=== PATIENT | male | born 1965 | race Caucasian/White ===

== ENCOUNTER → 2016-07-25 | Outpatient (CLI) | payer BC ==
--- NOTE | 2016-07-25 15:36 | XR ---
Cervical spine HISTORY: Pain 5 views of the cervical spine No comparisons There is multilevel spondylosis. Mild loss of cervical lordosis could be due to muscle spasm. Some lo ss of disc height C2-3, C3-4. No significant foraminal encroachment. Cervical vertebral bodies show p reserved height and alignment, bone mineralization. IMPRESSION: Mild degenerative disc disease.
--- NOTE | 2016-07-25 15:37 | XR ---
Thoracic spine HISTORY: Pain 3 views of the thoracic spine There is multilevel hypertrophic spondylosis. Mild loss of disc height at the intervertebral levels o f the lower thoracic spine level is noted. There is a mild spinal curvature. Bone mineralization is m aintained. Thoracic vertebral bodies show preserved height and alignment. No evident paraspinal mass. IMPRESSION: Degenerative disc disease, there may be a mild spinal curvature.
--- NOTE | 2016-07-25 15:40 | XR ---
Lumbosacral spine HISTORY: Radiculopathy comparison previous 08 July 2009, 5 views of the lumbar spine Patient's spinal fusion changes are again noted and are stable L3-S1. There is multilevel laminectomy change, intervertebral spacing material at L3-4. Mild spinal curvature. Spondylosis present at T12-L 1, L1-2, L2-3. There is stable height and alignment, bone mineralization of the lumbar vertebral bodi es. Loss of disc height at L3-4, L4-5 and L5-S1 as progressed slightly. IMPRESSION: Postop changes, degenerative disc disease as described.
== END | disposition home or self-care (01) ==
LOC: RADXRMAIN 13:32
PROVIDERS: ATTEND Family Medicine
DX: M50.31 Other cervical disc degeneration, high cervical region (principal); M51.34 Other intervertebral disc degeneration, thoracic region; M51.36 Other intervertebral disc degeneration, lumbar region; M51.37 Other intervertebral disc degeneration, lumbosacral region
CPT/HCPCS: 72050; 72070; 72110

== ENCOUNTER 2016-12-16 17:51 | Emergency (ER) | payer BC ==
[2016-12-16 18:03] VITALS: BP 132/94; PULSE 110; RESP 18; TEMP 98.1
--- NOTE | 2016-12-16 18:11 | ED ---
General Adult HPI - General Chief complaint: Extremity Injury, Lower Stated complaint: Right knee pain Time Seen by Provider: 12/16/16 18:02 Source: patient, RN notes reviewed Mode of arrival: ambulatory Limitations: no limitations - History of Present Illness Initial comments: Patient is a 51-year-old male who presents emergency room today with a chief complaint of an injury to the right knee that occurred 3 days ago. He does admit that he twisted his right ankle which caused him to twist his right knee. He states that his ankle feels fine at this time but is still expressing pain to the right knee. He states that has been some swelling. States having dental times ambulation and has started using a walker to help. Patient denies any other complaints or symptoms at this time. Patient denies any recent fever, chills, shortness of breath, chest pain, back pain, abdominal pain, nausea or vomiting, numbness or tingling, dysuria or hematuria, constipation or diarrhea, headaches or visual changes, or any other complaints. - Related Data Home Medications Medication Instructions Recorded Confirmed Acetaminophen-Codeine 300-30mg 1 tab PO Q6H PRN 09/01/14 09/01/14 [Tylenol #3] Cyclobenzaprine [Flexeril] 10 mg PO TID 09/01/14 09/01/14 HYDROcodone/APAP 5-325MG [[place] 5] 1 each PO Q6HR PRN 09/01/14 09/01/14 Lisinopril [Prinivil] 20 mg PO DAILY 09/01/14 09/01/14 amLODIPine [Norvasc] 10 mg PO DAILY 09/01/14 09/01/14 Previous Rx's Medication Instructions Recorded HYDROcodone/APAP 5-325MG [[place] 5] 1 each PO Q6HR PRN #30 tab 09/01/14 Naproxen [Naprosyn] 500 mg PO Q12HR #60 tab 09/01/14 Allergies Allergy/AdvReac Type Severity Reaction Status Date / Time Beta-Blockers Allergy Swelling Unverified 07/02/15 08:23 (Beta-Adrenergic Bloc lisinopril Allergy Swelling Unverified 07/02/15 08:23 Review of Systems ROS Statement: Those systems with pertinent positive or pertinent negative responses have been documented in the HPI. ROS Other: All systems not noted in ROS Statement are negative. Past Medical History Past Medical History: Hypertension History of Any Multi-Drug Resistant Organisms: None Reported Past Surgical History: Back Surgery, Bowel Resection, Orthopedic Surgery Past Psychological History: No Psychological Hx Reported Smoking Status: Current every day smoker Past Alcohol Use History: Occasional Past Drug Use History: None Reported General Exam - General Exam Comments Initial Comments: General: The patient is awake and alert, in no distress, and does not appear acutely ill. Neck: The neck is supple, there is no tenderness or JVD. Cardiovascular: There is a regular rate and rhythm. No murmur, rub or gallop is appreciated. Respiratory: Lungs are clear to auscultation, respirations are non-labored, breath sounds are equal. No wheezes, stridor, rales, or rhonchi. Musculoskeletal: Patient does have some moderate swelling to the right knee. Shows limited range of motion with extension and flexion -15 in each direction. Patient sensations are intact pulses equal bilaterally 2+. Mild tenderness to the anterior medial aspect and over the patella. No other bony tenderness. No tenderness of the right ankle or up into the right hip. Neurological: A&O x 3. CN II-XII intact, There are no obvious motor or sensory deficits. Coordination appears grossly intact. Speech is normal. Skin: Skin is warm and dry and no rashes or lesions are noted. Psychiatric: Normal mood and affect. Limitations: no limitations Course Vital Signs 12/16/16 18:00 Temperature 98.1 F Pulse Rate 110 H Respiratory 18 Rate Blood Pressure 132/94 O2 Sat by Pulse 98 Oximetry Medical Decision Making - Medical Decision Making X-ray negative for any acute fracture dislocation. Results were discussed with patient. Patient will be placed in knee immobilizer here in the emergency room and advised follow-up with orthopedics over the next 2 days. Advised to continue to ice elevate the affected area. Advised return to emergency room symptoms increase worsen or for any other concerns. Disposition Clinical Impression: Knee injury, Knee effusion Disposition: HOME SELF-CARE Condition: Good Instructions: Knee Pain (ED) Additional Instructions: Please use knee immobilizer when up and moving around for stability. Please do not sleep with this on. Please continue to ice elevate the affected areas discussed. Please use naproxen for pain. Please follow-up with orthopedics over the next 2 days. Please return to emergency room if any symptoms increase or worsen or for any other concerns. Referrals: Lonnie Valles MD [Primary Care Provider] - 1-2 days Brent Mcfarland MD [STAFF PHYSICIAN] - 1-2 days Time of Disposition: 18:38
--- NOTE | 2016-12-16 18:25 | XR ---
EXAMINATION TYPE: XR knee complete RT DATE OF EXAM: 12/16/2016 COMPARISON: NONE HISTORY: Pain TECHNIQUE: 3 views FINDINGS: I see no fracture nor dislocation. There is a small knee joint effusion. There is spurring on the patella. Joint spaces are fairly normal. IMPRESSION: Small joint effusion. No fracture seen.
== END 2016-12-16 18:48 | disposition home or self-care (01) ==
LOC: EC 17:51
DX: S89.91XA Unspecified injury of right lower leg, initial encounter (principal); M25.461 Effusion, right knee; I10 Essential (primary) hypertension; F17.200 Nicotine dependence, unspecified, uncomplicated; Z79.899 Other long term (current) drug therapy; Z88.8 Allergy status to other drugs, medicaments and biological substances; X50.1XXA Overexertion from prolonged static or awkward postures, initial encounter
CPT/HCPCS: 99283; 73562; L1830 ×2

== ENCOUNTER → 2018-02-22 | Outpatient (CLI) | payer BC ==
[2018-02-22 11:46] LABS: Basophils # (A) 0.1 k/uL (0-0.2); Basophils % (A) 1 %; Eosinophils # (A) 0.3 k/uL (0-0.7); Eosinophils % (A) 3 %; HCT 48.5 % (39.0-53.0); HGB 15.9 gm/dL (13.0-17.5); Lymphocytes # (A) 1.7 k/uL (1.0-4.8); Lymphocytes % (A) 20 %; MCH 31.4 pg (25.0-35.0); MCHC 32.9 g/dL (31.0-37.0); MCV 95.5 fL (80.0-100.0); Mean Platelet Volume 6.8; Monocytes # (A) 0.5 k/uL (0-1.0); Monocytes % (A) 5 %; Neutrophils # (A) 5.6 k/uL (1.3-7.7); Neutrophils % (A) 69 %; Platelet Count 217 k/uL (150-450); RBC 5.08 m/uL (4.30-5.90); RDW 13.3 % (11.5-15.5); WBC 8.2 k/uL (3.8-10.6)
[2018-02-22 20:54] LABS: Albumin 4.6 g/dL (3.80-4.90); Albumin/Globulin Ratio 2.19 (1.20-2.10); Anion Gap 9.7 mmol/L (4.00-12.00); Calcium 9.1 mg/dL (8.7-10.3); Carbon Dioxide 26.3 mmol/L (21.6-31.8); Globulin 2.1 g/dL (2.1-3.7); LDL Cholesterol,Calculated 98.8 mg/dL (0.0-131.0); Potassium 4.2 mmol/L (3.5-5.5); Total Bilirubin 0.7 mg/dL (0.2-1.2); Total Protein 6.7 g/dL (6.2-8.2); VLDL Calculation 21.2 mg/dL (5.00-40.00)
== END | disposition home or self-care (01) ==
LOC: LABWHC1 10:54
PROVIDERS: ATTEND Family Medicine
DX: Z00.00 Encounter for general adult medical examination without abnormal findings (principal); I10 Essential (primary) hypertension
CPT/HCPCS: 36415; 80053; 80061; 84153; 84439; 84443; 85025

== ENCOUNTER 2018-04-08 15:07 | Emergency (ER) | payer BC ==
[2018-04-08] MEDS: SODIUM CHLORIDE 0.9% 500 ML 500 ML IV SCH ×2 (16:08→16:09)
[2018-04-08 16:26] LABS: Basophils # (A) 0.1 k/uL (0-0.2); Basophils % (A) 0 %; Eosinophils # (A) 0.2 k/uL (0-0.7); Eosinophils % (A) 2 %; HCT 48.2 % (39.0-53.0); HGB 16.1 gm/dL (13.0-17.5); Lymphocytes # (A) 1.3 k/uL (1.0-4.8); Lymphocytes % (A) 10 %; MCHC 33.4 g/dL (31.0-37.0); Mean Platelet Volume 6.6; Monocytes # (A) 0.4 k/uL (0-1.0); Monocytes % (A) 3 %; Neutrophils % (A) 84 %; Platelet Count 227 k/uL (150-450); RBC 5.02 m/uL (4.30-5.90); RDW 13.8 % (11.5-15.5); WBC 13.1 k/uL (3.8-10.6)
[2018-04-08 16:35] LABS: Appearance,Urine Clear (Clear); Bilirubin,Urine Negative (Negative); Blood,Urine Trace (Negative); Color,Urine Yellow; Glucose,Urine (UA) Negative (Negative); Ketones,Urine Negative (Negative); Leukocyte Esterase,Urine Negative (Negative); Mucus,Urine Rare /hpf; Nitrite,Urine Negative (Negative); PH, Urine 6.5 (5.0-8.0); Protein,Urine Negative (Negative); RBC,Urine 1 /hpf (0-5); Squamous Epithelial Cell,Urine <1 /hpf (0-4); Urobilinogen,Urine <2.0 mg/dL (<2.0); WBC,Urine 1 /hpf (0-5)
--- NOTE | 2018-04-08 16:48 | XR ---
EXAMINATION TYPE: XR knee complete LT DATE OF EXAM: 04/08/2018 COMPARISON: NONE HISTORY: Left knee pain TECHNIQUE: 3 views FINDINGS: There is knee joint effusion. There is spurring of the patella. I see no fracture nor dislo cation. Joint spaces are fairly normal. IMPRESSION: Knee joint effusion. No fracture seen. No significant joint space narrowing.
[2018-04-08] MEDS ORDERED: KETOROLAC 30 MG/ML 1 ML VIAL IVP STA (17:03)
[2018-04-08 18:01] LABS: ALT 65 U/L (21-72); AST 70 U/L (17-59); Albumin 4.7 g/dL (3.5-5.0); Alkaline Phosphatase 70 U/L (38-126); Anion Gap 12 mmol/L; Blood Urea Nitrogen 9 mg/dL (9-20); C Reactive Protein 12.5 mg/L (<10.0); Calcium 9.7 mg/dL (8.4-10.2); Carbon Dioxide 26 mmol/L (22-30); Chloride 101 mmol/L (98-107); Glucose 132 mg/dL (74-99); Sodium 139 mmol/L (137-145); Total Protein 8.3 g/dL (6.3-8.2); Uric Acid 8.2 mg/dL (3.5-8.5)
[2018-04-08] MEDS ORDERED: cefTRIAXone 2,000 MG in SODIUM CHLORIDE 0.9% 100 ML IVPB STA (18:16)
--- NOTE | 2018-04-08 18:24 | ED ---
General Adult HPI <Agusto Pierson - Last Filed: 04/08/18 21:14> - General Source: patient, RN notes reviewed Mode of arrival: wheelchair Limitations: no limitations <Navneet Mcbride - Last Filed: 04/08/18 21:23> - General Chief complaint: Extremity Injury, Lower Stated complaint: Knee pain Time Seen by Provider: 04/08/18 15:17 - History of Present Illness Initial comments: 52-year-old male presents to the emergency department for a chief complaint of left knee pain. Patient states this has been ongoing for the past 4 days. Patient states he has also had a very swollen left knee, stating it is somewhat less swollen today than yesterday. Patient states he has had this type of pain and swelling before in the left knee but usually it does not last this long. Patient states this has occured "a few times" over the past year or two. He =- stated that he needed to have a knee tapped in the past but is unsure which knee. Patient is unsure how he injured his left knee. He denies fevers or chills at home. Patient does state he has a history of gout but has not had gout in the left knee. Patient has no other complaints at this time including shortness of breath, chest pain, abdominal pain, nausea or vomiting, headache, or visual changes. (Navneet Mcbride) - Related Data Home Medications Medication Instructions Recorded Confirmed Acetaminophen-Codeine 300-30mg 1 tab PO Q6H PRN 09/01/14 09/01/14 [Tylenol #3] Cyclobenzaprine [Flexeril] 10 mg PO TID 09/01/14 09/01/14 HYDROcodone/APAP 5-325MG [[place] 5] 1 each PO Q6HR PRN 09/01/14 09/01/14 Lisinopril [Prinivil] 20 mg PO DAILY 09/01/14 09/01/14 amLODIPine [Norvasc] 10 mg PO DAILY 09/01/14 09/01/14 Previous Rx's Medication Instructions Recorded HYDROcodone/APAP 5-325MG [[place] 5] 1 each PO Q6HR PRN #30 tab 09/01/14 Naproxen [Naprosyn] 500 mg PO Q12HR #60 tab 09/01/14 Allergies Allergy/AdvReac Type Severity Reaction Status Date / Time Beta-Blockers Allergy Swelling Verified 04/08/18 19:56 (Beta-Adrenergic Bloc lisinopril Allergy Swelling Verified 04/08/18 19:56 Review of Systems ROS Other: All systems not noted in ROS Statement are negative. <Agusto Pierson - Last Filed: 04/08/18 21:14> ROS Other: All systems not noted in ROS Statement are negative. <Navneet Mcbride - Last Filed: 04/08/18 21:23> ROS Statement: Those systems with pertinent positive or pertinent negative responses have been documented in the HPI. Past Medical History Past Medical History: Hypertension Additional Past Medical History / Comment(s): gout History of Any Multi-Drug Resistant Organisms: None Reported Past Surgical History: Back Surgery, Bowel Resection, Orthopedic Surgery Past Psychological History: No Psychological Hx Reported Smoking Status: Current every day smoker Past Alcohol Use History: Occasional Past Drug Use History: None Reported <Navneet Mcbride - Last Filed: 04/08/18 21:23> General Exam Limitations: no limitations General appearance: alert, in no apparent distress Head exam: Present: atraumatic, normocephalic, normal inspection Eye exam: Present: normal appearance, PERRL, EOMI. Absent: scleral icterus, conjunctival injection, periorbital swelling ENT exam: Present: normal exam, mucous membranes moist Neck exam: Present: normal inspection, full ROM. Absent: tenderness, meningismus, lymphadenopathy Respiratory exam: Present: normal lung sounds bilaterally. Absent: respiratory distress, wheezes, rales, rhonchi, stridor Cardiovascular Exam: Present: regular rate, normal rhythm, normal heart sounds. Absent: systolic murmur, diastolic murmur, rubs, gallop, clicks Extremities exam: Present: tenderness (Tenderness noted to the anterior and lateral aspects of the left knee, no significant posterior knee tenderness.), normal capillary refill (Capillary refill less than 2 seconds and DP pulse 2+ in the left lower extremity), joint swelling (Patient does have moderate edema noted to the anterior left knee without significant erythema or warmth. ), other (Sensation intact the left lower extremity). Absent: full ROM (Patient has about 60 degrees flexion of the left knee.), calf tenderness (No calf tenderness, negative Homans sign. No erythema, edema, or increased warmth noted of the left calf) Neurological exam: Present: alert, oriented X3, CN II-XII intact Psychiatric exam: Present: normal affect, normal mood <Navneet Mcbride - Last Filed: 04/08/18 21:23> Course <Agusto Pierson - Last Filed: 04/08/18 21:14> <Navneet Mcbride - Last Filed: 04/08/18 21:23> Vital Signs 04/08/18 04/08/18 15:22 18:30 Temperature 100.4 F H 99.8 F H Pulse Rate 106 H 84 Respiratory 18 18 Rate Blood Pressure 165/95 166/87 O2 Sat by Pulse 100 96 Oximetry - Reevaluation(s) Reevaluation #1: 04/08/18 21:14 PA supervision I did do a [id number] evaluation the patient he does demonstrate left knee effusion. Did have a mildly elevated white blood cell count elevated lactic acid some evidence of dehydration he is initially febrile upon admission however he just smokes cigarettes prior to his temperature being taken. Repeat was within normal limits except for one had a mildly elevated temperature. Patient did have a therapeutic done to his knee with multiple cells noted. Patient was given IV antibiotics he was offered admission but does not want to be admitted he is set was try going home with oral medication follow-up with his doctor. (Agusto Pierson) Procedures <Agusto Pierson - Last Filed: 04/08/18 21:14> - Bursa Procedures Consent Obtained: verbal consent Indications: R/O septic bursitis, R/O gouty bursitis, aspiration/injection Side of Body: left XRAY Obtained: other (joint effusion) Local Anesthetic Used: Lidocaine 1% Amount of Anesthesia Used (mls): 1 Fluid Obtained (mls): 85 Fluid Type: clear (straw colored) Patient Tolerated Procedure: well, no complications Complications: none <Navneet Mcbride - Last Filed: 04/08/18 21:23> - Bursa Procedures Additional Comments: performed by myself and BRANDYN Muse (Navneet Mcbride) Medical Decision Making - Lab Data Result diagrams: 04/08/18 16:05 04/08/18 16:05 <Agusto Pierson - Last Filed: 04/08/18 21:14> - Lab Data Result diagrams: 04/08/18 16:05 04/08/18 16:05 <Navneet Mcbride - Last Filed: 04/08/18 21:23> - Medical Decision Making 52-year-old male presents to the emergency department for a chief complaint of left knee pain. This has happened multiple times over the past couple years however is lasting longer. This episode lasted about 5 days. Patient does have a history of gout. On exam patient does have effusion noted of the left knee. CBC shows a mild white count of 13.1. Lactic acid 2.8, patient given IV fluids, likely dehydrated. Initially patient did have a fever of 100.4 however had just smoked a cigarette. I did recheck a temperature which was 98.7 immediately after arrival. CMP is unremarkable. Urine negative. X-ray of the left knee shows a knee joint effusion and spurring of the patella. The knee was therapeutically tapped successfully. White blood cells less than 50,000. However did recommend admission at this time for orthopedic evaluation and possibly IV antibiotics. Patient was given a gram of Rocephin. Patient stating that he cannot stay tonight because he does not have arrangements to take care of his mother. He states he will follow up with the primary care provider tomorrow or return if he has worsening symptoms. He was also given a referral to orthopedics. (Navneet Mcbride) - Lab Data Lab Results 04/08/18 04/08/18 04/08/18 Range/Units 16:05 16:05 16:05 WBC 13.1 H (3.8-10.6) k/uL RBC 5.02 (4.30-5.90) m/uL Hgb 16.1 (13.0-17.5) gm/dL Hct 48.2 (39.0-53.0) % MCV 96.0 (80.0-100.0) fL MCH 32.0 (25.0-35.0) pg MCHC 33.4 (31.0-37.0) g/dL RDW 13.8 (11.5-15.5) % Plt Count 227 (150-450) k/uL Neutrophils % 84 % Lymphocytes % 10 % Monocytes % 3 % Eosinophils % 2 % Basophils % 0 % Neutrophils # 11.0 H (1.3-7.7) k/uL Lymphocytes # 1.3 (1.0-4.8) k/uL Monocytes # 0.4 (0-1.0) k/uL Eosinophils # 0.2 (0-0.7) k/uL Basophils # 0.1 (0-0.2) k/uL Sodium 139 (137-145) mmol/L Potassium 4.0 (3.5-5.1) mmol/L Chloride 101 (98-107) mmol/L Carbon Dioxide 26 (22-30) mmol/L Anion Gap 12 mmol/L BUN 9 (9-20) mg/dL Creatinine 0.70 (0.66-1.25) mg/dL Est GFR (CKD-EPI)AfAm >90 (>60 ml/min/1.73 sqM) Est GFR (CKD-EPI)NonAf >90 (>60 ml/min/1.73 sqM) Glucose 132 H (74-99) mg/dL Lactic Ac Sepsis Rflx Plasma Lactic Acid Juve 2.8 H* (0.7-2.0) mmol/L Uric Acid 8.2 (3.5-8.5) mg/dL Calcium 9.7 (8.4-10.2) mg/dL Total Bilirubin 1.0 (0.2-1.3) mg/dL AST 70 H (17-59) U/L ALT 65 (21-72) U/L Alkaline Phosphatase 70 (38-126) U/L C-Reactive Protein 12.5 H (<10.0) mg/L Total Protein 8.3 H (6.3-8.2) g/dL Albumin 4.7 (3.5-5.0) g/dL Urine Color Urine Appearance (Clear) Urine pH (5.0-8.0) Ur Specific [place] (1.001-1.035) Urine Protein (Negative) Urine Glucose (UA) (Negative) Urine Ketones (Negative) Urine Blood (Negative) Urine Nitrite (Negative) Urine Bilirubin (Negative) Urine Urobilinogen (<2.0) mg/dL Ur Leukocyte Esterase (Negative) Urine RBC (0-5) /hpf Urine WBC (0-5) /hpf Ur Squamous Epith Cells (0-4) /hpf Urine Mucus (None) /hpf Fluid Source Fluid Color Fluid Appearance Fluid RBC /uL Fluid Nucleated Cells /uL Fluid Polynuclear WBCs % Fluid Mononuclear WBCs % 04/08/18 04/08/18 04/08/18 Range/Units 16:05 17:30 18:04 WBC (3.8-10.6) k/uL RBC (4.30-5.90) m/uL Hgb (13.0-17.5) gm/dL Hct (39.0-53.0) % MCV (80.0-100.0) fL MCH (25.0-35.0) pg MCHC (31.0-37.0) g/dL RDW (11.5-15.5) % Plt Count (150-450) k/uL Neutrophils % % Lymphocytes % % Monocytes % % Eosinophils % % Basophils % % Neutrophils # (1.3-7.7) k/uL Lymphocytes # (1.0-4.8) k/uL Monocytes # (0-1.0) k/uL Eosinophils # (0-0.7) k/uL Basophils # (0-0.2) k/uL Sodium (137-145) mmol/L Potassium (3.5-5.1) mmol/L Chloride (98-107) mmol/L Carbon Dioxide (22-30) mmol/L Anion Gap mmol/L BUN (9-20) mg/dL Creatinine (0.66-1.25) mg/dL Est GFR (CKD-EPI)AfAm (>60 ml/min/1.73 sqM) Est GFR (CKD-EPI)NonAf (>60 ml/min/1.73 sqM) Glucose (74-99) mg/dL Lactic Ac Sepsis Rflx Y Plasma Lactic Acid Juve (0.7-2.0) mmol/L Uric Acid (3.5-8.5) mg/dL Calcium (8.4-10.2) mg/dL Total Bilirubin (0.2-1.3) mg/dL AST (17-59) U/L ALT (21-72) U/L Alkaline Phosphatase (38-126) U/L C-Reactive Protein (<10.0) mg/L Total Protein (6.3-8.2) g/dL Albumin (3.5-5.0) g/dL Urine Color Yellow Urine Appearance Clear (Clear) Urine pH 6.5 (5.0-8.0) Ur Specific [place] 1.010 (1.001-1.035) Urine Protein Negative (Negative) Urine Glucose (UA) Negative (Negative) Urine Ketones Negative (Negative) Urine Blood Trace H (Negative) Urine Nitrite Negative (Negative) Urine Bilirubin Negative (Negative) Urine Urobilinogen <2.0 (<2.0) mg/dL Ur Leukocyte Esterase Negative (Negative) Urine RBC 1 (0-5) /hpf Urine WBC 1 (0-5) /hpf Ur Squamous Epith Cells <1 (0-4) /hpf Urine Mucus Rare H (None) /hpf Fluid Source Synovial Fluid Color Yellow Fluid Appearance Cloudy Fluid RBC 2350 /uL Fluid Nucleated Cells 59842 /uL Fluid Polynuclear WBCs 87 % Fluid Mononuclear WBCs 13 % Disposition <Agusto Pierson - Last Filed: 04/08/18 21:14> Is patient prescribed a controlled substance at d/c from ED?: No Time of Disposition: 21:16 <Navneet Mcbride - Last Filed: 04/08/18 21:23> Clinical Impression: Knee pain, left, Knee effusion, left Disposition: HOME SELF-CARE Condition: Good Instructions: Knee Pain (ED) Additional Instructions: Take Motrin and Tylenol for pain. Rest ice and elevate the left knee. Use Raz wrap as needed. Please follow up with primary care and orthopedics in one to 2 days. Please return to the emergency department if you have any worsening symptoms. Referrals: Lonnie Valles MD [Primary Care Provider] - 1-2 days Jason Velasquez MD [STAFF PHYSICIAN] - 1-2 days
[2018-04-08 19:49] LABS: Color,BF Yellow
[2018-04-08 19:50] LABS: Appearance,BF Cloudy; Mononuclear WBC,Body Fluid 13 %; Nucleated Cells, Body Fluid 19300 /uL; Polynuclear WBC,Body Fluid 87 %; RBC, Body Fluid 2350 /uL
[2018-04-08 21:25] VITALS: BP 179/95; PULSE 85; RESP 20; TEMP 100.5
== END 2018-04-08 21:25 | disposition home or self-care (01) ==
LOC: EC 15:07
DX: M25.462 Effusion, left knee (principal); I10 Essential (primary) hypertension; F17.210 Nicotine dependence, cigarettes, uncomplicated; Z87.39 Personal history of other diseases of the musculoskeletal system and connective tissue; Z98.890 Other specified postprocedural states; Z79.899 Other long term (current) drug therapy; Z88.8 Allergy status to other drugs, medicaments and biological substances
CPT/HCPCS: 36415; 89060; 80053; 89050; 83605; 84550; 85025; 86140; 81001; 87040; 87070; 87205; 82945; 83615; 73562; 99283; 20610; 96365; 96375; J0696; J1885

== ENCOUNTER 2018-04-09 15:36 | Inpatient (IN) | payer BC ==
[2018-04-09] MEDS ORDERED: VANCOMYCIN IV PER PHARMACY 1 EACH MISC MISCELLANE PRN (16:53)
[2018-04-09] MEDS ORDERED: cefTRIAXone 2,000 MG in SODIUM CHLORIDE 0.9% 100 ML IVPB STA (16:56)
[2018-04-09] MEDS ORDERED: VANCOMYCIN 2,500 MG in SODIUM CHLORIDE 0.9% 500 ML 500 ML IVPB STA (17:00)
[2018-04-09] MEDS ORDERED: NALOXONE 0.4 MG/ML 1 ML VIAL IV PRN (17:00)
[2018-04-09] MEDS ORDERED: HYDROmorphone 0.5 MG/0.5 ML SYRINGE IVP PRN (17:00)
--- NOTE | 2018-04-09 17:00 | ED ---
General Adult HPI - General Chief complaint: Extremity Problem,Nontraumatic Stated complaint: knee pain/poss sepsis Time Seen by Provider: 04/09/18 16:37 Source: patient, RN notes reviewed Mode of arrival: wheelchair Limitations: no limitations - History of Present Illness Initial comments: Patient is a pleasant 52-year-old male presenting to the emergency Department with complaints of left knee pain. Onset of symptoms was several days ago. Patient was in the emergency department yesterday. There was concern for possible septic arthritis. Patient did receive a dose of antibiotics however was unable to stand the hospital and left AGAINST MEDICAL ADVICE. Patient did follow-up with practitioner today and advised him to come back to the hospital. Patient states he is now able to stay at this time. Patient did have fever yesterday. Patient has had chills and myalgias today. Mild cough. Discomfort is localized to the anterior knee. No calf pain or thigh pain. Knee was warm yesterday. Patient states there is mild erythema yesterday. Pain increases with movement - Related Data Home Medications Medication Instructions Recorded Confirmed Acetaminophen-Codeine 300-30mg 1 tab PO Q6H PRN 09/01/14 04/09/18 [Tylenol #3] Cyclobenzaprine [Flexeril] 10 mg PO TID PRN 09/01/14 04/09/18 amLODIPine [Norvasc] 10 mg PO DAILY 09/01/14 04/09/18 Hydrochlorothiazide [Hydrodiuril] 12.5 mg PO DAILY 04/09/18 04/09/18 buPROPion XL [Wellbutrin Xl] 150 mg PO DAILY 04/09/18 04/09/18 Allergies Allergy/AdvReac Type Severity Reaction Status Date / Time Beta-Blockers Allergy Swelling Verified 04/09/18 17:04 (Beta-Adrenergic Bloc lisinopril Allergy Swelling Verified 04/09/18 17:04 olmesartan Allergy Swelling Verified 04/09/18 17:04 Review of Systems ROS Statement: Those systems with pertinent positive or pertinent negative responses have been documented in the HPI. ROS Other: All systems not noted in ROS Statement are negative. Constitutional: Reports: fever. Denies: chills Eyes: Denies: eye pain ENT: Denies: ear pain Respiratory: Reports: cough Cardiovascular: Denies: chest pain Endocrine: Denies: fatigue Gastrointestinal: Denies: abdominal pain Genitourinary: Denies: dysuria Musculoskeletal: Reports: joint swelling, arthralgia Neurological: Denies: weakness Past Medical History Past Medical History: Hypertension Additional Past Medical History / Comment(s): gout History of Any Multi-Drug Resistant Organisms: None Reported Past Surgical History: Back Surgery, Bowel Resection, Orthopedic Surgery Past Psychological History: No Psychological Hx Reported Smoking Status: Current every day smoker Past Alcohol Use History: Occasional Past Drug Use History: None Reported General Exam Limitations: no limitations General appearance: alert, in no apparent distress Head exam: Present: atraumatic Eye exam: Present: normal appearance, PERRL ENT exam: Present: normal oropharynx Neck exam: Present: normal inspection Respiratory exam: Present: normal lung sounds bilaterally Cardiovascular Exam: Present: regular rate, normal rhythm Expanded Peripheral pulses: 2+: Posterior Tibialis (L), Dorsalis Pedis (L) GI/Abdominal exam: Present: soft. Absent: tenderness Extremities exam: Present: joint swelling (Left knee with anterior fusion and tenderness. Pain with range of motion. No significant erythema. Minimal warmth.), other (Distally the extremity is neurovascular intact). Absent: pedal edema, calf tenderness Neurological exam: Present: alert. Absent: motor sensory deficit Psychiatric exam: Present: normal mood Skin exam: Absent: rash Course Vital Signs 04/09/18 04/09/18 15:39 18:10 Temperature 98.2 F 98.2 F Pulse Rate 98 96 Respiratory 18 18 Rate Blood Pressure 165/110 168/90 O2 Sat by Pulse 99 98 Oximetry - Reevaluation(s) Reevaluation #1: 04/09/18 18:39 Chest x-ray shows by basilar opacities with possible bronchopneumonia. Rocephin has been started however is azithromycin will be added. 04/09/18 18:40 Patient does not meet sepsis criteria. EKG Findings - EKG Comments: EKG Findings:: Normal sinus rhythm at 80. ND 134. QRS 90. QT 368. QTC 424. Normal axis. Normal QRS. No acute ST change. Medical Decision Making - Medical Decision Making Patient presents with either inflammatory arthralgia or septic arthritis. Septic arthritis cannot be ruled out at this point. Case was discussed in detail with Dr. Valles who is in agreement and will admit his patient with orthopedic consult. IV antibiotics will be started. - Lab Data Result diagrams: 04/09/18 17:35 04/09/18 17:35 - Radiology Data Radiology results: image reviewed (X-ray of left knee shows no acute process. Chest x-ray shows right basilar opacities which could represent bronchopneumonia.) Disposition Clinical Impression: Knee pain, left, Bronchopneumonia Disposition: ADMITTED IP TO THIS HOSP Condition: Serious Is patient prescribed a controlled substance at d/c from ED?: No Decision Time: 16:59
--- NOTE | 2018-04-09 17:22 | XR ---
PROCEDURE: XR knee complete LT - 3V DATE AND TIME: 04/09/2018 5:10 PM CLINICAL INDICATION: PHH; Pain TECHNIQUE: Department protocol COMPARISON: 04/08/2018 FINDINGS: Bones and joints are unremarkable. Minimal joint effusion is seen in the suprapatellar bursa. Periarticular soft tissue tissues are unremarkable. IMPRESSION: Negative for fracture or malalignment.
[2018-04-09] MEDS: SODIUM CHLORIDE 0.9% 500 ML 500 ML IV SCH ×2 (17:51→20:57)
[2018-04-09] MEDS: SODIUM CHLORIDE 0.9% 1,000 ML IV SCH (17:52)
[2018-04-09 17:56] LABS: Basophils # (A) 0.1 k/uL (0-0.2); Basophils % (A) 1 %; Eosinophils # (A) 0.3 k/uL (0-0.7); Eosinophils % (A) 2 %; HCT 45.7 % (39.0-53.0); HGB 15.3 gm/dL (13.0-17.5); Lymphocytes # (A) 1.8 k/uL (1.0-4.8); Lymphocytes % (A) 14 %; MCH 31.8 pg (25.0-35.0); MCHC 33.4 g/dL (31.0-37.0); MCV 95.1 fL (80.0-100.0); Mean Platelet Volume 6.7; Monocytes # (A) 0.6 k/uL (0-1.0); Monocytes % (A) 5 %; Neutrophils # (A) 9.7 k/uL (1.3-7.7); Neutrophils % (A) 77 %; Platelet Count 236 k/uL (150-450); RBC 4.81 m/uL (4.30-5.90); RDW 13.5 % (11.5-15.5); WBC 12.5 k/uL (3.8-10.6)
[2018-04-09 18:10] LABS: Partial Thromboplastin Time 24.7 sec (22.0-30.0); Prothrombin Time 10.7 sec (9.0-12.0)
[2018-04-09 18:23] LABS: ALT 64 U/L (21-72); AST 65 U/L (17-59); Albumin 4.7 g/dL (3.5-5.0); Alkaline Phosphatase 80 U/L (38-126); Anion Gap 12 mmol/L; Blood Urea Nitrogen 10 mg/dL (9-20); C Reactive Protein 21.5 mg/L (<10.0); Calcium 9.8 mg/dL (8.4-10.2); Carbon Dioxide 25 mmol/L (22-30); Chloride 104 mmol/L (98-107); Glucose 102 mg/dL (74-99); Potassium 4.4 mmol/L (3.5-5.1); Sodium 141 mmol/L (137-145); Total Bilirubin 0.9 mg/dL (0.2-1.3); Total Protein 8.6 g/dL (6.3-8.2)
--- NOTE | 2018-04-09 18:28 | XR ---
EXAMINATION: XR chest 3V DATE AND TIME: 04/09/2018 5:44 PM CLINICAL INDICATION: PHH; fever TECHNIQUE: 2 frontal and one lateral view COMPARISON: None FINDINGS: There is a rounded area of ill-defined added opacity in the left lower lung zone. Similar o pacity is noted on the right, but more subtle. These findings could represent summation shadows from breast parenchyma, left greater than the right. However, they should be considered pulmonary until pr oven otherwise. The lungs are otherwise negative. The pleural spaces are negative. The cardiac silhouette is not enlarged. The skeletal structures and soft tissues are negative for acute findings. IMPRESSION: Bibasilar ill-defined opacities, greater on the left, which can correlate with a clinical diagnosis o f bronchopneumonia. Six-week follow-up PA and lateral chest radiographs advised in order to prove res olution.
[2018-04-09 18:51] LABS: Erythrocyte Sedimentation Rate 20 mm/hr (0-15)
[2018-04-09 20:19] VITALS: BMI 38.7
[2018-04-09] MEDS: HYDROmorphone 1 MG/ML 1 ML SYRINGE IVP PRN (20:50)
[2018-04-09] MEDS: amLODIPine 10 MG TAB PO SCH (22:17)
[2018-04-09] MEDS: AZITHROMYCIN 500 MG in SODIUM CHLORIDE 0.9% 250 ML IVPB SCH (23:21)
[2018-04-10] MEDS: HYDROmorphone 1 MG/ML 1 ML SYRINGE IVP PRN ×2 (00:38→07:37)
[2018-04-10] MEDS: VANCOMYCIN 2,000 MG in SODIUM CHLORIDE 0.9% 500 ML 500 ML IVPB SCH ×3 (05:36→21:54)
--- NOTE | 2018-04-10 07:40 | P.CNOR ---
History of Present Illness - [facility] Consult date: 04/10/18 Consult reason: joint pain (Left knee pain/swelling) History of present illness: The patient's a 52-year-old male who presents with progressive left knee pain that started about a week ago. He had a gouty flare in his left foot, and once that started to resolve his left knee became quite swollen and painful. This progressed over the weekend and he went to the emergency room last Sunday. He had it drained and got initial relief. Subsequently his pain has recurred along with swelling and subjective fevers. He is having a difficult time with any weightbearing. Review of Systems Constitutional: Reports fever Musculoskeletal: left: knee pain, knee swelling Past Medical History Past Medical History: Eye Disorder, GERD/Reflux, Hypertension, Liver Disease, Musculoskeletal Disorder, Neurologic Disorder, Osteoarthritis (OA), Skin Disorder, Sleep Apnea/CPAP/BIPAP Additional Past Medical History / Comment(s): gout, lower extremity numbness, excema History of Any Multi-Drug Resistant Organisms: None Reported Past Surgical History: Back Surgery, Bowel Resection, Orthopedic Surgery Additional Past Surgical History / Comment(s): 4 surgeries to lower back, back fusion, 4 left elbow surgeries, bowel perforation, 18" of bowel removed Past Anesthesia/Blood Transfusion Reactions: No Reported Reaction Past Psychological History: Depression Smoking Status: Current every day smoker Past Alcohol Use History: Occasional Past Drug Use History: None Reported - Past Family History Mother Family Medical History: Hypertension Father Family Medical History: Diabetes Mellitus, Hypertension Medications and Allergies Home Medications Medication Instructions Recorded Confirmed Type Acetaminophen-Codeine 300-30mg 1 tab PO Q6H PRN 09/01/14 04/09/18 History [Tylenol #3] Cyclobenzaprine [Flexeril] 10 mg PO TID PRN 09/01/14 04/09/18 History amLODIPine [Norvasc] 10 mg PO DAILY 09/01/14 04/09/18 History Hydrochlorothiazide [Hydrodiuril] 12.5 mg PO DAILY 04/09/18 04/09/18 History buPROPion XL [Wellbutrin Xl] 150 mg PO DAILY 04/09/18 04/09/18 History Allergies Allergy/AdvReac Type Severity Reaction Status Date / Time Beta-Blockers Allergy Swelling Verified 04/09/18 17:04 (Beta-Adrenergic Bloc lisinopril Allergy Swelling Verified 04/09/18 17:04 olmesartan Allergy Swelling Verified 04/09/18 17:04 Physical Examination - Knee left Appearance: effusion Effusion grade: grade 3 (Moderate warmth left knee with diffuse joint line tenderness) Tenderness with palpation: medial, lateral Pain: throughout ROM Gait: limping ROM: extension: -25 degrees ROM: flexion: 80 degrees Strength: extension: 5/5 Strength: flexion: 5/5 Results - Labs Labs: Abnormal Lab Results - Last 24 Hours (Table) 04/09/18 04/09/18 Range/Units 17:35 17:35 WBC 12.5 H (3.8-10.6) k/uL Neutrophils # 9.7 H (1.3-7.7) k/uL ESR 20 H (0-15) mm/hr Glucose 102 H (74-99) mg/dL AST 65 H (17-59) U/L C-Reactive Protein 21.5 H (<10.0) mg/L Total Protein 8.6 H (6.3-8.2) g/dL H & H 04/09/18 Range/Units 17:35 Hgb 15.3 (13.0-17.5) gm/dL Hct 45.7 (39.0-53.0) % Coagulation 04/09/18 Range/Units 17:35 INR 1.0 (<1.2) Result Diagrams: 04/09/18 17:35 04/09/18 17:35 - Diagnostic results Knee x-ray: report reviewed Assessment and Plan Assessment: Left knee effusion/synovitispossibly gouty versus infectious (1) Knee effusion, left Narrative/Plan: I talked with patient regarding his condition along with treatment options. His previous aspiration showed 19,300 white blood cells with no definite crystals. We will plan to proceed with arthroscopic irrigation and debridement of the left knee with probable synovectomy. We will obtain deep cultures along with fluid for crystal analysis. We will also await infectious disease input. Current Visit: No Status: Acute Code(s): M25.462 - EFFUSION, LEFT KNEE SNOMED Code(s): 032963895 Plan: Operating room today for arthroscopic debridement.
[2018-04-10] MEDS: cefTRIAXone 2,000 MG in SODIUM CHLORIDE 0.9% 100 ML IVPB SCH (09:45)
[2018-04-10] MEDS: amLODIPine 10 MG TAB PO SCH (09:45)
[2018-04-10] MEDS: HYDROCHLOROTHIAZIDE 12.5 MG CAP PO SCH (09:45)
[2018-04-10] MEDS: buPROPion XL 150 MG TAB.ER.24H PO SCH (09:45)
--- NOTE | 2018-04-10 11:08 | P.CONS ---
History of Present Illness - Reason for Consult Consult date: 04/10/18 Possible septic knee - History of Present Illness This is a 52-year-old male gives history of frequent gout episodes and the bilateral great toes or ankles. He states that he had an episode last Sunday in the left ankle and this seemed to subsided but by his left knee started feeling sore. On Sunday was very stiff and it continued to worsen over the weekend with increased edema and by Sunday he was just miserable. He states he has had episodes of sharp pain in his left knee for which he occasionally wears knee brace. He has not had any previous surgeries in the left knee but has had a possible aspiration with past. He came into [facility] emergency center on April 08. Knee x-ray showed an effusion, no acute fracture, no significant joint space narrowing and he was diagnosed with knee effusion. Patient underwent aspiration which was yellow, cloudy, RBCs 2350, nucleated cells 19,300, probably nuclear 87, mononuclear 13, glucose 114, LDH 192, crystals none. He was given 1 dose of Rocephin and recommended Motrin and Tylenol for pain and ice and elevation and Raz wrap, outpatient follow-up. Patient was offered admission but declined because he needed to make arrangements for someone to care for his mother. Patient had appointment at his PCP and by the time he arrived there he was feeling short of breath, lightheaded, hot and in general not feeling well. He was sent directly into the emergency center to be evaluated. Temperature max was 100.5, white count 13.1, creatinine 0.71, initial lactic acid 2.8 and repeat 0.7, CRP 21.5 and sed rate 20. Blood culture is showing no growth at 24 hours and fluid culture is in progress. Repeat x-ray of the knee showed negative for fracture or malalignment. Chest x-ray showed bibasilar ill-defined opacities greater on the left, correlate with clinical diagnosis of bronchopneumonia. Six-week follow-up recommended. Symptoms of shortness of breath, lightheadedness and feeling hot have resolved. Review of Systems All systems: negative Constitutional: Reports weakness, Denies anorexia, Denies chills, Denies fever, Denies poor appetite, Denies weight loss Eyes: denies blurred vision, denies pain Ears, nose, mouth and throat: Denies dental pain, Denies dysphagia, Denies headache, Denies hoarseness, Denies mouth pain, Denies sore throat, Denies vertigo Cardiovascular: Reports leg edema, Reports lightheadedness, Reports shortness of breath, Denies chest pain, Denies decreased exercise tolerance, Denies dyspnea on exertion, Denies edema, Denies palpitations, Denies syncope Respiratory: Reports cough (chronic), Reports dyspnea, Denies excessive sputum, Denies hemoptysis, Denies home oxygen, Denies wheezing Gastrointestinal: Denies abdominal pain, Denies bloating, Denies diarrhea, Denies loss of appetite, Denies nausea, Denies vomiting Genitourinary: Denies dysuria Musculoskeletal: Reports gait dysfunction, Denies frequent falls, Denies muscle weakness, Denies myalgias Integumentary: Reports color changes, Reports darkening of skin, Denies pruritus , Denies rash, Denies wounds Neurological: Denies aphasia, Denies change in speech, Denies headaches, Denies numbness, Denies seizures, Denies weakness Psychiatric: Denies anxiety, Denies depression Endocrine: Denies fatigue, Denies weight change Past Medical History Past Medical History: Eye Disorder, GERD/Reflux, Hypertension, Liver Disease, Musculoskeletal Disorder, Neurologic Disorder, Osteoarthritis (OA), Skin Disorder, Sleep Apnea/CPAP/BIPAP Additional Past Medical History / Comment(s): gout, lower extremity numbness, eczema, obstructive sleep apnea on CPAP History of Any Multi-Drug Resistant Organisms: None Reported Past Surgical History: Back Surgery, Bowel Resection, Orthopedic Surgery Additional Past Surgical History / Comment(s): 4 surgeries to lower back, back fusion, 4 left elbow surgeries, bowel perforation, 18" of bowel removed Past Anesthesia/Blood Transfusion Reactions: No Reported Reaction Past Psychological History: Depression Smoking Status: Current every day smoker Past Alcohol Use History: Occasional Additional Past Alcohol Use History / Comment(s): The patient has been a smoker one to one and a half to 2 packs a day for 27 years. He is currently cutting back over the past 2 weeks and plans to quit completely. He also has alcohol abuse problems drinking more than a sixpack of beer per day but has cut back over the past 3 weeks. His last alcohol intake was a week ago Sunday. The patient is on disability secondary to 4 back surgeries. 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 Past Drug Use History: None Reported - Past Family History Mother Family Medical History: Hypertension Father Family Medical History: Diabetes Mellitus, Hypertension Medications and Allergies Home Medications Medication Instructions Recorded Confirmed Type Acetaminophen-Codeine 300-30mg 1 tab PO Q6H PRN 09/01/14 04/09/18 History [Tylenol #3] Cyclobenzaprine [Flexeril] 10 mg PO TID PRN 09/01/14 04/09/18 History amLODIPine [Norvasc] 10 mg PO DAILY 09/01/14 04/09/18 History Hydrochlorothiazide [Hydrodiuril] 12.5 mg PO DAILY 04/09/18 04/09/18 History buPROPion XL [Wellbutrin Xl] 150 mg PO DAILY 04/09/18 04/09/18 History Allergies Allergy/AdvReac Type Severity Reaction Status Date / Time Beta-Blockers Allergy Swelling Verified 04/09/18 17:04 (Beta-Adrenergic Bloc lisinopril Allergy Swelling Verified 04/09/18 17:04 olmesartan Allergy Swelling Verified 04/09/18 17:04 Physical Exam Vitals: Vital Signs Temp Pulse Pulse Resp BP BP Pulse Ox 04/10/18 07:27 98.3 F 83 18 168/98 96 04/10/18 00:05 98.7 F 85 17 126/76 94 L 04/09/18 22:07 98.6 F 90 16 144/94 96 04/09/18 20:44 98.4 F 87 16 172/110 95 04/09/18 18:10 98.2 F 96 18 168/90 98 04/09/18 15:39 98.2 F 98 18 165/110 99 Intake and Output 04/09/18 04/10/18 04/10/18 22:59 06:59 14:59 Intake Total 750 Balance 750 Intake: Intake, IV Titration 750 Amount Azithromycin 500 mg In 250 Sodium Chloride 0.9% 250 ml @ 250 mls/hr IVPB DAILY@2000 [facility] Rx#: [id number] Vancomycin 2,000 mg In 500 Sodium Chloride 0.9% 500 ml 500 ml @ 167 mls/hr IVPB Q8H [facility] Rx#: [id number] Other: # Voids 1 Weight 138.4 kg Gen: This is a morbidly obese 52-year-old male. He is in bed and appears to be comfortable. No acute distress noted. HEENT: Head is atraumatic, normocephalic. Pupils equal, round. Sclerae is anicteric. Conjunctiva pink. Mucous memories of the mouth are moist. No thrush noted. Oral pharynx shows no redness or erythema. NECK: Supple. No JVD. No lymphadenopathy. No thyromegaly. LUNGS: Clear to auscultation. No wheezes or rhonchi. No intercostal retractions. HEART: Regular rate and rhythm. No murmur. ABDOMEN: Soft. Bowel sounds are present. No masses. No tenderness. EXTREMITIES: No pedal edema. No calf tenderness. Dorsalis pedis +2 bilaterally. Patient has pain and warmth to the left knee with decreased range of motion. No open wounds, drainage. NEUROLOGICAL: Patient is awake, alert and oriented x3. Cranial nerves 2 through 12 are grossly intact. Results Results: Laboratory Results WBC 12.5 k/uL (3.8-10.6) H 04/09/18 17:35 RBC 4.81 m/uL (4.30-5.90) 04/09/18 17:35 Hgb 15.3 gm/dL (13.0-17.5) 04/09/18 17:35 Hct 45.7 % (39.0-53.0) 04/09/18 17:35 MCV 95.1 fL (80.0-100.0) 04/09/18 17:35 MCH 31.8 pg (25.0-35.0) 04/09/18 17:35 MCHC 33.4 g/dL (31.0-37.0) 04/09/18 17:35 RDW 13.5 % (11.5-15.5) 04/09/18 17:35 Plt Count 236 k/uL (150-450) 04/09/18 17:35 Neutrophils % 77 % 04/09/18 17:35 Lymphocytes % 14 % 04/09/18 17:35 Monocytes % 5 % 04/09/18 17:35 Eosinophils % 2 % 04/09/18 17:35 Basophils % 1 % 04/09/18 17:35 Neutrophils # 9.7 k/uL (1.3-7.7) H 04/09/18 17:35 Lymphocytes # 1.8 k/uL (1.0-4.8) 04/09/18 17:35 Monocytes # 0.6 k/uL (0-1.0) 04/09/18 17:35 Eosinophils # 0.3 k/uL (0-0.7) 04/09/18 17:35 Basophils # 0.1 k/uL (0-0.2) 04/09/18 17:35 ESR 20 mm/hr (0-15) H 04/09/18 17:35 PT 10.7 sec (9.0-12.0) 04/09/18 17:35 INR 1.0 (<1.2) 04/09/18 17:35 APTT 24.7 sec (22.0-30.0) 04/09/18 17:35 Sodium 141 mmol/L (137-145) 04/09/18 17:35 Potassium 4.4 mmol/L (3.5-5.1) 04/09/18 17:35 Chloride 104 mmol/L (98-107) 04/09/18 17:35 Carbon Dioxide 25 mmol/L (22-30) 04/09/18 17:35 Anion Gap 12 mmol/L 04/09/18 17:35 BUN 10 mg/dL (9-20) 04/09/18 17:35 Creatinine 0.66 mg/dL (0.66-1.25) 04/09/18 17:35 Est GFR (CKD-EPI)AfAm >90 (>60 ml/min/1.73 sqM) 04/09/18 17:35 Est GFR (CKD-EPI)NonAf >90 (>60 ml/min/1.73 sqM) 04/09/18 17:35 Glucose 102 mg/dL (74-99) H 04/09/18 17:35 Plasma Lactic Acid Juve 0.9 mmol/L (0.7-2.0) 04/09/18 17:35 Uric Acid 7.7 mg/dL (3.5-8.5) 04/09/18 17:35 Calcium 9.8 mg/dL (8.4-10.2) 04/09/18 17:35 Total Bilirubin 0.9 mg/dL (0.2-1.3) 04/09/18 17:35 AST 65 U/L (17-59) H 04/09/18 17:35 ALT 64 U/L (21-72) 04/09/18 17:35 Alkaline Phosphatase 80 U/L (38-126) 04/09/18 17:35 C-Reactive Protein 21.5 mg/L (<10.0) H 04/09/18 17:35 Total Protein 8.6 g/dL (6.3-8.2) H 04/09/18 17:35 Albumin 4.7 g/dL (3.5-5.0) 04/09/18 17:35 CBC & Chem 7: 04/09/18 17:35 04/09/18 17:35 Labs: Abnormal Lab Results - Last 24 Hours (Table) 04/09/18 04/09/18 Range/Units 17:35 17:35 WBC 12.5 H (3.8-10.6) k/uL Neutrophils # 9.7 H (1.3-7.7) k/uL ESR 20 H (0-15) mm/hr Glucose 102 H (74-99) mg/dL AST 65 H (17-59) U/L C-Reactive Protein 21.5 H (<10.0) mg/L Total Protein 8.6 H (6.3-8.2) g/dL Assessment and Plan Plan: This is a 52-year-old male who presents to hospital with left knee pain with history of gout. He is scheduled arthroscopic debridement this afternoon. He did present with lactic acidosis which has resolved. Patient is currently on azithromycin, Rocephin and vancomycin. There was concern of bronchopneumonia on chest x-ray. Fluid culture is in progress and blood culture showing no growth at 24 hours. Continue supportive care. Further recommendations as patient presses. The above dictated assessment and findings were discussed with Dr. Larose. The impression and plan of care have been directed as dictated. Shyla Queen nurse practitioner acting as scribe for Dr. Lraose.
--- NOTE | 2018-04-10 14:01 | P.HPIM ---
History of Present Illness H&P Date: 04/10/18 Chief Complaint: Left knee pain Pj, is a 52 y/o WM with known h/o gout. He c/o of left ankle pain approx 6 days ago consistant with his gout. 5 days ago the pain was in his left knee and resolved in the ankle. THe Knee sx worsened and became sever. He was seen in the office and directed to ER 2 days ago where he underwent drainage. He returned after having worse pain. He denies any Chest pain, poressure, SOB, nausea or vomiting with this. Nothing he has taken at home helped much with his sx. Review of Systems All systems: negative Past Medical History Past Medical History: Eye Disorder, GERD/Reflux, Hypertension, Liver Disease, Musculoskeletal Disorder, Neurologic Disorder, Osteoarthritis (OA), Skin Disorder, Sleep Apnea/CPAP/BIPAP Additional Past Medical History / Comment(s): gout, lower extremity numbness, eczema, obstructive sleep apnea on CPAP History of Any Multi-Drug Resistant Organisms: None Reported Past Surgical History: Back Surgery, Bowel Resection, Orthopedic Surgery Additional Past Surgical History / Comment(s): 4 surgeries to lower back, back fusion, 4 left elbow surgeries, bowel perforation, 18" of bowel removed Past Anesthesia/Blood Transfusion Reactions: No Reported Reaction Past Psychological History: Depression Smoking Status: Current every day smoker Past Alcohol Use History: Occasional Additional Past Alcohol Use History / Comment(s): The patient has been a smoker one to one and a half to 2 packs a day for 27 years. He is currently cutting back over the past 2 weeks and plans to quit completely. He also has alcohol abuse problems drinking more than a sixpack of beer per day but has cut back over the past 3 weeks. His last alcohol intake was a week ago Sunday. The patient is on disability secondary to 4 back surgeries. 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 Past Drug Use History: None Reported - Past Family History Mother Family Medical History: Hypertension Father Family Medical History: Diabetes Mellitus, Hypertension Medications and Allergies Home Medications Medication Instructions Recorded Confirmed Type Acetaminophen-Codeine 300-30mg 1 tab PO Q6H PRN 09/01/14 04/09/18 History [Tylenol #3] Cyclobenzaprine [Flexeril] 10 mg PO TID PRN 09/01/14 04/09/18 History amLODIPine [Norvasc] 10 mg PO DAILY 09/01/14 04/09/18 History Hydrochlorothiazide [Hydrodiuril] 12.5 mg PO DAILY 04/09/18 04/09/18 History buPROPion XL [Wellbutrin Xl] 150 mg PO DAILY 04/09/18 04/09/18 History Allergies Allergy/AdvReac Type Severity Reaction Status Date / Time Beta-Blockers Allergy Swelling Verified 04/09/18 17:04 (Beta-Adrenergic Bloc lisinopril Allergy Swelling Verified 04/09/18 17:04 olmesartan Allergy Swelling Verified 04/09/18 17:04 Physical Exam Vitals: Vital Signs Temp Pulse Pulse Resp BP BP Pulse Ox 04/10/18 07:27 98.3 F 83 18 168/98 96 04/10/18 00:05 98.7 F 85 17 126/76 94 L 04/09/18 22:07 98.6 F 90 16 144/94 96 04/09/18 20:44 98.4 F 87 16 172/110 95 04/09/18 18:10 98.2 F 96 18 168/90 98 04/09/18 15:39 98.2 F 98 18 165/110 99 Intake and Output 04/09/18 04/10/18 04/10/18 22:59 06:59 14:59 Intake Total 750 600 Balance 750 600 Intake: Intake, IV Titration 750 600 Amount Azithromycin 500 mg In 250 Sodium Chloride 0.9% 250 ml @ 250 mls/hr IVPB DAILY@2000 [facility] Rx#: [id number] Vancomycin 2,000 mg In 500 500 Sodium Chloride 0.9% 500 ml 500 ml @ 167 mls/hr IVPB Q8H [facility] Rx#: [id number] cefTRIAXone 2,000 mg In 100 Sodium Chloride 0.9% 100 ml @ 100 mls/hr IVPB Q24HR [facility] Rx#:[id number] Other: # Voids 1 2 Weight 138.4 kg - Constitutional General appearance: mild distress, obese - EENT Eyes: EOMI, PERRLA - Neck Neck: no lymphadenopathy, normal ROM, no thyromegaly - Respiratory Respiratory: bilateral: diminished - Cardiovascular Rhythm: regular Heart sounds: normal: S1, S2 Abnormal Heart Sounds: no systolic murmur, no diastolic murmur, no rub - Gastrointestinal General gastrointestinal: normal bowel sounds, no organomegaly - Integumentary Integumentary: calor (mild left knee), no cellulitis - Neurologic Neurologic: CNII-XII intact - Psychiatric Psychiatric: A&O x's 3 Results CBC & Chem 7: 04/09/18 17:35 04/09/18 17:35 Labs: Abnormal Lab Results - Last 24 Hours (Table) 04/09/18 04/09/18 Range/Units 17:35 17:35 WBC 12.5 H (3.8-10.6) k/uL Neutrophils # 9.7 H (1.3-7.7) k/uL ESR 20 H (0-15) mm/hr Glucose 102 H (74-99) mg/dL AST 65 H (17-59) U/L C-Reactive Protein 21.5 H (<10.0) mg/L Total Protein 8.6 H (6.3-8.2) g/dL Comments: xray knee reviewed Chest x-ray: report reviewed Thrombosis Risk Factor Assmnt - DVT/VTE Prophylaxis DVT/VTE Prophylaxis: Mechanical Prophylaxis ordered, Low risk, early ambulation encouraged - Choose All That Apply Any of the Below Risk Factors Present?: Yes Each Factor Represents 1 point: Age 41-60 years, Obesity (BMI >25) Other Risk Factors: No Other congenital or acquired thrombophilia - If yes, enter type in comment: No Thrombosis Risk Factor Assessment Total Risk Factor Score: 2 Thrombosis Risk Factor Assessment Level: Low Risk Assessment and Plan (1) Gout attack Current Visit: Yes Status: Acute Code(s): M10.9 - GOUT, UNSPECIFIED SNOMED Code(s): 74582805 (2) Hypertension Current Visit: Yes Status: Acute Code(s): I10 - ESSENTIAL (PRIMARY) HYPERTENSION SNOMED Code(s): 52418239 (3) Tobacco abuse Current Visit: Yes Status: Acute Code(s): Z72.0 - TOBACCO USE SNOMED Code( s): 128065587 (4) COPD (chronic obstructive pulmonary disease) Current Visit: Yes Status: Acute Code(s): J44.9 - CHRONIC OBSTRUCTIVE PULMONARY DISEASE, UNSPECIFIED SNOMED Code(s): 28058118 (5) Abnormal chest xray Current Visit: Yes Status: Acute Code(s): R93.89 - ABNORMAL FINDINGS ON DX IMAGING OF OTH BODY STRUCTURES SNOMED Code(s): 642195500 (6) Knee pain, left Current Visit: Yes Status: Acute Code(s): M25.562 - PAIN IN LEFT KNEE SNOMED Code(s): 99639400 (7) Knee effusion, left Current Visit: No Status: Acute Code(s): M25.462 - EFFUSION, LEFT KNEE SNOMED Code(s): 126250928 Plan: I will reveiw cultures and labs from ER drainage consult ID and ORTHO, review labs including URic Acid levels. Control BP with Norvasc and HCTZ, may need to D/C HCTZ if it is contributing to gout flare will start gout meds based on Uric Acid r/o other crystal deposition disease and infection as well I will Reevalute him in 24 hrs
[2018-04-10] MEDS ORDERED: IV FLUID CONTINUATION 1,000 ML IV ONE (14:17)
[2018-04-10] MEDS ORDERED: fentaNYL (PF) 50 MCG/ML 2 ML AMP IVP ONE ×2 (14:38)
[2018-04-10] MEDS ORDERED: DEXAMETHASONE SOD PHOS (MDV) 100 MG/10 ML VIAL ONE (14:44)
[2018-04-10] MEDS ORDERED: fentaNYL (PF) 50 MCG/ML 2 ML AMP ONE (14:44)
[2018-04-10] MEDS ORDERED: SUCCINYLCHOLINE CHLORIDE VIAL 200 MG/10 ML VIAL IV ONE (14:44)
[2018-04-10] MEDS ORDERED: MIDAZOLAM 2 MG/2 ML VIAL ONE (14:44)
[2018-04-10] MEDS ORDERED: PROPOFOL 10 MG/ML 20 ML VIAL IV ONE (14:44)
[2018-04-10] MEDS ORDERED: KETOROLAC 30 MG/ML 1 ML VIAL ONE (14:44)
[2018-04-10] MEDS ORDERED: LIDOCAINE 1% INJ 10MG/ML (20 ML MDV) ONE (14:44)
--- NOTE | 2018-04-10 15:33 | P.OP ---
Date of Procedure: 04/10/18 Preoperative Diagnosis: Left knee synovitisgouty versus infectious Postoperative Diagnosis: Sameprobable gouty synovitis Procedure(s) Performed: Left knee arthroscopic lavage/major synovectomy of the medial, lateral, and patellofemoral articulations Anesthesia: CHAPOA Surgeon: Jason Velasquez Estimated Blood Loss (ml): 10 Pathology: other (Deep cultures, fluid for crystal analysis) Disposition: PACU Indications for Procedure: The patient's a 52-year-old male who presents with a weeklong history of progressive left knee swelling and pain. He did have a recent gouty flare in his foot preceding this event. He also admitted to subjective fevers. A discussion of the risks and benefits of operative intervention was made with the patient. He opted to proceed with surgery. Operative risks to include persistence of infection, and possible need for subsequent procedures was discussed. Informed consent was obtained. Operative Findings: Marked synovitis, significant crystal deposition Description of Procedure: The patient was brought to the operating room, and after induction of general anesthesia examined the left knee. Collaterals were stable, Bibi was negative, and posterior drawer was negative. There is a large effusion. The left lower extremity was prepped and draped in normal fashion. A superior lateral portals made through a 3 mm skin incision superior and lateral to the patella. The fluid was obtained and sent for culture, Gram stain, and crystal analysis as well as cell count. Arthroscopy was then performed. A lateral portals made through a 5 mm vertical skin incision lateral to the patella tendon above the joint. A medial portal was made through a similar incision medial to the patellar tendon above the joint. On inspection of the medial compartment, there was mild degenerative changes however no definite meniscal tear. There was significant synovitis in addition to crystal deposition. This was debrided with a motorized shaver. On inspection of the notch, the anterior cruciate ligament appeared to be intact. On inspection of the lateral compartment, there was marked synovitis and crystal deposition. Again this was debrided with motorized shaver. On inspection patellofemoral articulation, there was mild degenerative changes along with significant synovitis and crystal deposition. Again this was debrided with a motorized shaver. The gutters were clear debris. The knee was irrigated with 9 L of fluid. A sterile dressing was applied along the portals to remaining open for drainage. A compression stocking was placed. The patient was awoken from general anesthesia and transferred to recovery room in good condition. Blood loss was estimated at 10 mL. No complications were incurred.
[2018-04-10] MEDS ORDERED: predniSONE 10 MG TAB PO STA (15:36)
[2018-04-10 16:34] LABS: Appearance,BF Bloody; Nucleated Cells, Body Fluid 11000 /uL; RBC, Body Fluid 11600 /uL
[2018-04-10 16:35] LABS: Mononuclear WBC,Body Fluid 8 %; Polynuclear WBC,Body Fluid 92 %; Total Cells Counted,Body Fluid 100
[2018-04-10] MEDS ORDERED: hydrALAZINE HCL 25 MG TAB PO STA (16:48)
[2018-04-10] MEDS: SODIUM CHLORIDE 0.9% 1,000 ML IV SCH (18:47)
[2018-04-10] MEDS: AZITHROMYCIN 500 MG in SODIUM CHLORIDE 0.9% 250 ML IVPB SCH (20:40)
--- NOTE | 2018-04-10 23:49 | P.CON ---
Consult Note - . Consult date: 04/10/18 Assessment/Plan:: This is a 52-year-old male gives history of frequent gout episodes and the bilateral great toes or ankles. He states that he had an episode last Sunday in the left ankle and this seemed to subsided but by his left knee started feeling sore. On Sunday was very stiff and it continued to worsen over the weekend with increased edema and by Sunday he was just miserable. He states he has had episodes of sharp pain in his left knee for which he occasionally wears knee brace. He has not had any previous surgeries in the left knee but has had a possible aspiration with past. He came into [facility] emergency center on April 08. Knee x-ray showed an effusion, no acute fracture, no significant joint space narrowing and he was diagnosed with knee effusion. Patient underwent aspiration which was yellow, cloudy, RBCs 2350, nucleated cells 19,300, probably nuclear 87, mononuclear 13, glucose 114, LDH 192, crystals none. He was given 1 dose of Rocephin and recommended Motrin and Tylenol for pain and ice and elevation and Raz wrap, outpatient follow-up. Patient was offered admission but declined because he needed to make arrangements for someone to care for his mother. Patient had appointment at his PCP and by the time he arrived there he was feeling short of breath, lightheaded, hot and in general not feeling well. He was sent directly into the emergency center to be evaluated. Temperature max was 100.5, white count 13.1, creatinine 0.71, initial lactic acid 2.8 and repeat 0.7, CRP 21.5 and sed rate 20. Blood culture is showing no growth at 24 hours and fluid culture is in progress. Repeat x-ray of the knee showed negative for fracture or malalignment. Chest x-ray showed bibasilar ill-defined opacities greater on the left, correlate with clinical diagnosis of bronchopneumonia. Six-week follow-up recommended. Symptoms of shortness of breath, lightheadedness and feeling hot have resolved. Please see consult note is dictated by nurse practitioner Eli Shyla Queen. Is noted the patient has a history of prior joint troubles. Now presenting with increasing pain and swelling to the left knee. There he has been draining crystal analysis is pending. For now intravenous antibiotic therapy should be utilized until we have further data. Currently patient is still very uncomfortable. We'll continue current antibiotic therapy also with concerns to potential pulmonary infection until there is further data. Continue local care pain management and will monitor. I agree with evaluation, assessment and plan as dictated by nurse practitioner Mrs. Shyla Queen.
[2018-04-11] MEDS: CYCLOBENZAPRINE 10 MG TAB PO PRN ×2 (00:16→08:56)
[2018-04-11] MEDS ORDERED: VANCOMYCIN TROUGH DUE 1 EACH MISC MISCELLANE ONE (04:00)
[2018-04-11 04:08] LABS: Basophils % (A) 0 %; Eosinophils # (A) 0.1 k/uL (0-0.7); Eosinophils % (A) 0 %; HCT 47.9 % (39.0-53.0); HGB 15.8 gm/dL (13.0-17.5); Lymphocytes % (A) 6 %; MCH 32.2 pg (25.0-35.0); MCV 97.4 fL (80.0-100.0); Mean Platelet Volume 6.8; Monocytes # (A) 0.5 k/uL (0-1.0); Monocytes % (A) 3 %; Neutrophils # (A) 15.3 k/uL (1.3-7.7); Neutrophils % (A) 90 %; Platelet Count 219 k/uL (150-450); RBC 4.92 m/uL (4.30-5.90); RDW 13.3 % (11.5-15.5)
[2018-04-11 04:18] LABS: Anion Gap 10 mmol/L; Blood Urea Nitrogen 11 mg/dL (9-20); Calcium 9.2 mg/dL (8.4-10.2); Carbon Dioxide 22 mmol/L (22-30); Chloride 107 mmol/L (98-107); Glucose 177 mg/dL (74-99); Potassium 4.3 mmol/L (3.5-5.1); Sodium 139 mmol/L (137-145)
[2018-04-11] MEDS: VANCOMYCIN 2,000 MG in SODIUM CHLORIDE 0.9% 500 ML 500 ML IVPB SCH ×3 (04:52→21:20)
[2018-04-11 06:05] LABS: Large Platelets Present
[2018-04-11] MEDS: HYDROCHLOROTHIAZIDE 12.5 MG CAP PO SCH (08:55)
[2018-04-11] MEDS: amLODIPine 10 MG TAB PO SCH (08:56)
[2018-04-11] MEDS: cefTRIAXone 2,000 MG in SODIUM CHLORIDE 0.9% 100 ML IVPB SCH (09:18)
[2018-04-11] MEDS: buPROPion XL 150 MG TAB.ER.24H PO SCH (09:22)
--- NOTE | 2018-04-11 11:08 | P.PN ---
Subjective Progress Note Date: 04/11/18 Principal diagnosis: Status post Left knee arthroscopic lavage/major synovectomy of the medial, lateral, and patellofemoral articulations Patient evaluated today bedside, is resting comfortably. He notes improvement in the pain involving his left knee. No fevers or chills today. Objective - Vital Signs Vital signs: Vital Signs Temp 97.7 F 04/11/18 00:10 Pulse 86 04/11/18 00:10 Resp 16 04/11/18 00:10 BP 143/93 04/11/18 00:10 Pulse Ox 99 04/11/18 00:10 Intake & Output 04/10/18 04/11/18 04/11/18 18:59 06:59 18:59 Intake Total 850 680 Output Total 5 Balance 845 680 Intake: IV 250 Intake, IV Titration 600 200 Amount Sodium Chloride 0.9% 1, 200 000 ml @ 20 mls/hr IV . Q24H [facility] Rx#:[id number] Vancomycin 2,000 mg In 500 Sodium Chloride 0.9% 500 ml 500 ml @ 167 mls/hr IVPB Q8H [facility] Rx#: [id number] cefTRIAXone 2,000 mg In 100 Sodium Chloride 0.9% 100 ml @ 100 mls/hr IVPB Q24HR [facility] Rx#:[id number] Oral 480 Output: Estimated Blood Loss 5 Other: # Voids 2 1 - Exam Left lower extremity: Initial postop bandage and EDDIE hose are in good position and condition. Passive range of motion of the knee reproduces no significant discomfort. Distal neurovascular exam is intact. - Labs CBC & Chem 7: 04/11/18 03:55 04/11/18 03:55 Labs: Abnormal Lab Results - Last 24 Hours (Table) 04/10/18 04/11/18 04/11/18 Range/Units 15:11 03:55 03:55 WBC 17.0 H (3.8-10.6) k/uL Neutrophils # 15.3 H (1.3-7.7) k/uL Creatinine 0.54 L (0.66-1.25) mg/dL Glucose 177 H (74-99) mg/dL Synovial Crystals Seen H (None Seen) Microbiology - Last 24 Hours (Table) 04/10/18 15:11 Gram Stain - Preliminary Knee - Left Wound Culture - Preliminary 04/10/18 15:11 Anaerobic Culture - Preliminary Knee - Left 04/09/18 17:35 Blood Culture - Preliminary Blood No Growth after 24 hours Assessment and Plan Plan: Assessment: Postop day 1 status post Left knee arthroscopic lavage/major synovectomy of the medial, lateral, and patellofemoral articulations Likely left knee gouty arthropathy Plan: Continue weight-bear as tolerated this time Okay to remove bandages tomorrow Infectious disease recommendations Medical recommendations Pain control Orthopedic standpoint, patient currently is orthopedically stable. We'll continue to follow during his inpatient stay Time with Patient: Less than 30
--- NOTE | 2018-04-11 12:18 | P.PN ---
Lefty Oliva, is a 52 y/o WM with known h/o gout. He c/o of left ankle pain approx 6 days ago consistant with his gout. 5 days ago the pain was in his left knee and resolved in the ankle. THe Knee sx worsened and became sever. He was seen in the office and directed to ER 2 days ago where he underwent drainage. He returned after having worse pain. He denies any Chest pain, poressure, SOB, nausea or vomiting with this. Nothing he has taken at home helped much with his sx. 04/11/2018 Patient's pain is now much more controlled. He is status pos tLeft knee arthroscopic lavage/major synovectomy of the medial, lateral, and patellofemoral articulations him a postop day 1. Monosodium urate crystals were found during this. Cultures are pending. He denies any chest pains, pressures, or shortness of breath this time. He is a nonsmoker. Chest x-ray dated 04/09/2018 showed questionable pneumonia, but patient is asymptomatic with no cough of significance, fever, or rigors. He does have leukocytosis however. Infectious disease and orthopedic consult notes were reviewed. Objective - Vital Signs Vital signs: Vital Signs Temp 98.8 F 04/11/18 07:00 Pulse 68 04/11/18 07:00 Resp 18 04/11/18 07:00 BP 128/70 04/11/18 07:00 Pulse Ox 96 04/11/18 07:00 Intake & Output 04/10/18 04/11/18 04/11/18 18:59 06:59 18:59 Intake Total 850 680 Output Total 5 Balance 845 680 Intake: IV 250 Intake, IV Titration 600 200 Amount Sodium Chloride 0.9% 1, 200 000 ml @ 20 mls/hr IV . Q24H [facility] Rx#:[id number] Vancomycin 2,000 mg In 500 Sodium Chloride 0.9% 500 ml 500 ml @ 167 mls/hr IVPB Q8H [facility] Rx#: [id number] cefTRIAXone 2,000 mg In 100 Sodium Chloride 0.9% 100 ml @ 100 mls/hr IVPB Q24HR [facility] Rx#:[id number] Oral 480 Output: Estimated Blood Loss 5 Other: # Voids 2 1 - Exam General: The patient is awake and alert, in no distress, and does not appear acutely ill. Neck: The neck is supple, there is no thyromegaly, lymphadenopathy, tenderness or JVD. Cardiovascular: S1S2 is normal, There is a regular rate and rhythm. No murmur, rub or gallop is appreciated. Respiratory: Lungs are coarse to auscultation bilaterally, respirations are non-labored, breath sounds are equal. Gastrointestinal: Soft, non-distended, non-tender abdomen without masses or organomegaly noted. There is no rebound or guarding present. Bowel sounds are unremarkable. Musculoskeletal: Normal ROM, no tenderness, There is no pedal edema. There is no calf tenderness or swelling. No cords were appreciated. Jobst hose are in place. Dressings in place over the left knee. Neurological: CN II-XII intact, there are no obvious motor or sensory deficits. Coordination appears grossly intact. Speech is normal. Skin: Skin is warm and dry and no rashes or lesions are noted. - Labs CBC & Chem 7: 04/11/18 03:55 04/11/18 03:55 Labs: Abnormal Lab Results - Last 24 Hours (Table) 04/10/18 04/11/18 04/11/18 Range/Units 15:11 03:55 03:55 WBC 17.0 H (3.8-10.6) k/uL Neutrophils # 15.3 H (1.3-7.7) k/uL Creatinine 0.54 L (0.66-1.25) mg/dL Glucose 177 H (74-99) mg/dL Synovial Crystals Seen H (None Seen) Microbiology - Last 24 Hours (Table) 04/10/18 15:11 Gram Stain - Preliminary Knee - Left Wound Culture - Preliminary 04/10/18 15:11 Anaerobic Culture - Preliminary Knee - Left 04/09/18 17:35 Blood Culture - Preliminary Blood No Growth after 24 hours Assessment and Plan (1) Gout attack Current Visit: Yes Status: Acute Code(s): M10.9 - GOUT, UNSPECIFIED SNOMED Code(s): 16302976 (2) Hypertension Current Visit: Yes Status: Acute Code(s): I10 - ESSENTIAL (PRIMARY) HYPERTENSION SNOMED Code(s): 71971461 (3) Tobacco abuse Current Visit: Yes Status: Acute Code(s): Z72.0 - TOBACCO USE SNOMED Code( s): 516254454 (4) COPD (chronic obstructive pulmonary disease) Current Visit: Yes Status: Acute Code(s): J44.9 - CHRONIC OBSTRUCTIVE PULMONARY DISEASE, UNSPECIFIED SNOMED Code(s): 43842924 (5) Abnormal chest xray Current Visit: Yes Status: Acute Code(s): R93.89 - ABNORMAL FINDINGS ON DX IMAGING OF OTH BODY STRUCTURES SNOMED Code(s): 846905399 (6) Knee pain, left Current Visit: Yes Status: Acute Code(s): M25.562 - PAIN IN LEFT KNEE SNOMED Code(s): 11704044 (7) Knee effusion, left Current Visit: No Status: Acute Code(s): M25.462 - EFFUSION, LEFT KNEE SNOMED Code(s): 647425377 Plan: ER cultures were negative. Most recent culture and Gram stain showed monosodium urate crystals but no organisms. Back cultures pending. Control BP with Norvasc and HCTZ, may need to D/C HCTZ if it is contributing to gout flare Uric acid level was 7.7. I will start him on colchicine at this time Repeat the chest x-ray today. We'll await infectious disease and further refill recommendations. Most likely he could be discharged tomorrow. I will Reevalute him in 24 hrs
[2018-04-11] MEDS: Acetaminophen-Codeine 300-30mg TAB PO PRN ×2 (12:41→23:40)
[2018-04-11] MEDS: COLCHICINE 0.6 MG EACH PO SCH ×2 (13:15→21:20)
[2018-04-11 15:22] VITALS: RESP 16
--- NOTE | 2018-04-11 15:52 | XR ---
EXAMINATION TYPE: XR chest 2V DATE OF EXAM: 04/11/2018 COMPARISON: Prior chest x-ray 04/09/2017 HISTORY: Pneumonia TECHNIQUE: Frontal and lateral views of the chest are obtained. FINDINGS: Similar appearance is noted on the frontal view which may be related to overlying soft tiss ue. There is no focal air space opacity, pleural effusion, or pneumothorax seen. The cardiac silhoue tte size is within normal limits. The osseous structures are intact. IMPRESSION: No acute cardiopulmonary process. Follow-up as indicated.
[2018-04-11] MEDS: SODIUM CHLORIDE 0.9% 1,000 ML IV SCH (17:32)
[2018-04-11] MEDS ORDERED: AZITHROMYCIN 500 MG TAB PO SCH (20:00)
[2018-04-12] MEDS: VANCOMYCIN 2,000 MG in SODIUM CHLORIDE 0.9% 500 ML 500 ML IVPB SCH (05:20)
[2018-04-12 07:03] LABS: Basophils % (A) 0 %; Eosinophils # (A) 0.2 k/uL (0-0.7); Eosinophils % (A) 1 %; HCT 41.5 % (39.0-53.0); HGB 13.3 gm/dL (13.0-17.5); Lymphocytes # (A) 2.8 k/uL (1.0-4.8); Lymphocytes % (A) 25 %; MCH 30.7 pg (25.0-35.0); MCHC 32.1 g/dL (31.0-37.0); MCV 95.7 fL (80.0-100.0); Mean Platelet Volume 6.5; Monocytes # (A) 0.5 k/uL (0-1.0); Monocytes % (A) 5 %; Neutrophils # (A) 7.5 k/uL (1.3-7.7); Neutrophils % (A) 67 %; Platelet Count 246 k/uL (150-450); RBC 4.34 m/uL (4.30-5.90); RDW 13.4 % (11.5-15.5); WBC 11.2 k/uL (3.8-10.6)
[2018-04-12 07:12] LABS: Anion Gap 9 mmol/L; Blood Urea Nitrogen 14 mg/dL (9-20); C Reactive Protein 17.1 mg/L (<10.0); Carbon Dioxide 24 mmol/L (22-30); Chloride 107 mmol/L (98-107); Glucose 100 mg/dL (74-99); Potassium 4.2 mmol/L (3.5-5.1); Sodium 140 mmol/L (137-145)
--- NOTE | 2018-04-12 08:07 | P.PN ---
Progress Note - Text Progress Note Date: 04/12/18 S: The patient has no complaints. They deny shortness of breath or chest pain. He notes mild left knee pain, however significant improvement. O: Afebrile, vital signs stable Homans negative left lower extremity Distal neurovascular status intact in the operative extremity Incisions clean, dry , and intact Cultures negative for growth at 48 hours Fluid positive for uric acid crystals A/P: Status post arthroscopic lavage/synovectomy left knee for suspected gouty arthritis Continue weight-bear as tolerated with crutches Follow-up with Dr. Velasquez one-week after discharge.
[2018-04-12 08:30] LABS: Erythrocyte Sedimentation Rate 26 mm/hr (0-15)
[2018-04-12] MEDS: Acetaminophen-Codeine 300-30mg TAB PO PRN (08:58)
[2018-04-12] MEDS: amLODIPine 10 MG TAB PO SCH (08:58)
[2018-04-12] MEDS: HYDROCHLOROTHIAZIDE 12.5 MG CAP PO SCH (08:59)
[2018-04-12] MEDS: cefTRIAXone 2,000 MG in SODIUM CHLORIDE 0.9% 100 ML IVPB SCH (08:59)
[2018-04-12] MEDS: buPROPion XL 150 MG TAB.ER.24H PO SCH (08:59)
[2018-04-12] MEDS: COLCHICINE 0.6 MG EACH PO SCH (08:59)
[2018-04-12 09:10] VITALS: BP 150/92; PULSE 72; TEMP 98.5
--- NOTE | 2018-04-12 10:56 | P.DS ---
Providers Date of admission: 04/09/18 17:02 Expected date of discharge: 04/12/18 Attending physician: Lonnie Valles Consults: 04/09/18 17:00 Consult Physician Urgent Consulting Provider: Jason Velasquez Consult Reason/Comments: Knee pain rule out septic arthritis Do you want consulting provider notified?: Yes 04/09/18 19:32 Consult Physician Urgent Consulting Provider: Kane Larose Consult Reason/Comments: possible septic knee Do you want consulting provider notified?: Already Contacted Primary care physician: Lonnie Valles - Discharge Diagnosis(es) (1) Gout attack Current Visit: Yes Status: Acute (2) Hypertension Current Visit: Yes Status: Acute (3) Tobacco abuse Current Visit: Yes Status: Acute (4) COPD (chronic obstructive pulmonary disease) Current Visit: Yes Status: Acute (5) Abnormal chest xray Current Visit: Yes Status: Acute (6) Knee pain, left Current Visit: Yes Status: Acute (7) Knee effusion, left Current Visit: No Status: Acute Hospital Course: Pj, is a 52 y/o WM with known h/o gout. He c/o of left ankle pain approx 6 days ago consistant with his gout. 5 days ago the pain was in his left knee and resolved in the ankle. THe Knee sx worsened and became sever. He was seen in the office and directed to ER 2 days ago where he underwent drainage. He returned after having worse pain. He denies any Chest pain, poressure, SOB, nausea or vomiting with this. Nothing he has taken at home helped much with his sx. 04/11/2018 Patient's pain is now much more controlled. He is status pos tLeft knee arthroscopic lavage/major synovectomy of the medial, lateral, and patellofemoral articulations him a postop day 1. Monosodium urate crystals were found during this. Cultures are pending. He denies any chest pains, pressures, or shortness of breath this time. He is a nonsmoker. Chest x-ray dated 04/09/2018 showed questionable pneumonia, but patient is asymptomatic with no cough of significance, fever, or rigors. He does have leukocytosis however. Infectious disease and orthopedic consult notes were reviewed. 04/12/2018 Patient was celared by Ortho. Cultures all negative. Urate crystals seen in Left knee fluid. He was on Rocephin, Zithromax, and Vancomyin for possible septic joint and pneumonia. Repeat CXR was negative 04/11. He is doing well and will be D/C'd home. ID to issue antibiotics if felt appropriate. Patient Condition at Discharge: Fair Plan - Discharge Summary Discharge Rx Participant: Yes New Discharge Prescriptions: New Colchicine [Colcrys] 0.6 mg PO BID #60 each Continue amLODIPine [Norvasc] 10 mg PO DAILY Cyclobenzaprine [Flexeril] 10 mg PO TID PRN PRN Reason: Muscle Spasm Acetaminophen-Codeine 300-30mg [Tylenol w/codeine #3] 1 tab PO Q6H PRN PRN Reason: Pain buPROPion XL [Wellbutrin XL] 150 mg PO DAILY Hydrochlorothiazide [Hydrodiuril] 12.5 mg PO DAILY Discharge Medication List Acetaminophen-Codeine 300-30mg [Tylenol w/codeine #3] 1 tab PO Q6H PRN 09/01/14 [History] Cyclobenzaprine [Flexeril] 10 mg PO TID PRN 09/01/14 [History] amLODIPine [Norvasc] 10 mg PO DAILY 09/01/14 [History] Hydrochlorothiazide [Hydrodiuril] 12.5 mg PO DAILY 04/09/18 [History] buPROPion XL [Wellbutrin XL] 150 mg PO DAILY 04/09/18 [History] Colchicine [Colcrys] 0.6 mg PO BID #60 each 04/12/18 [Rx] Follow up Appointment(s)/Referral(s): Homer Lowry PAC [PHYSICIAN MEDICAL SERVICES MANAGER] - 1 Week Lonnie Valles MD [Primary Care Provider] - 1 Week Activity/Diet/Wound Care/Special Instructions: Weightbearing as tolerated left leg with crutches. Keep incisions clean and dry. Discharge Disposition: HOME SELF-CARE
[2018-04-12] MEDS ORDERED: HYDROmorphone 2 MG TAB PO PRN (10:58)
[2018-04-12] MEDS ORDERED: HYDROmorphone 4 MG TABLET PO PRN (10:59)
== END 2018-04-12 14:13 | disposition home or self-care (01) | DRG 488 ==
LOC: EC 15:36 → 4SSUR 17:02
PROVIDERS: ADMIT Family Medicine; ATTEND Family Medicine
PROC: 0SBD4ZZ Excision of Left Knee Joint, Percutaneous Endoscopic Approach (ICD-10-PCS; principal; 2018-04-09)
DX: M10.9 Gout, unspecified (principal); J44.0 Chronic obstructive pulmonary disease with (acute) lower respiratory infection; K21.9 Gastro-esophageal reflux disease without esophagitis; I10 Essential (primary) hypertension; M19.90 Unspecified osteoarthritis, unspecified site; F32.9 Major depressive disorder, single episode, unspecified; G47.33 Obstructive sleep apnea (adult) (pediatric); L30.9 Dermatitis, unspecified; F10.10 Alcohol abuse, uncomplicated; F17.210 Nicotine dependence, cigarettes, uncomplicated; Z82.49 Family history of ischemic heart disease and other diseases of the circulatory system; Z79.899 Other long term (current) drug therapy; Z88.8 Allergy status to other drugs, medicaments and biological substances; Z99.89 Dependence on other enabling machines and devices; Z83.3 Family history of diabetes mellitus
CPT/HCPCS: 71046; 80048; 80053; 80202; 83605; 84550; 85025; 85610; 85652; 85730; 86140; 87040; 87070; 87075; 87205; 89050; 89060; 93005; 96365; 99284

== ENCOUNTER 2018-05-12 16:07 | Emergency (ER) | payer BC ==
[2018-05-12] MEDS ORDERED: SODIUM CHLORIDE 0.9% 500 ML 500 ML IV STA (16:46)
[2018-05-12] MEDS ORDERED: PANTOPRAZOLE 40 MG/10 ML VIAL IVP ONE (16:47)
--- NOTE | 2018-05-12 16:51 | ED ---
General Adult HPI - General Chief complaint: Recheck/Abnormal Lab/Rx Stated complaint: elevated BP Time Seen by Provider: 05/12/18 16:10 Source: patient, EMS Mode of arrival: EMS Limitations: no limitations - History of Present Illness Initial comments: Dictation was produced using [employer] dictation software. please excuse any grammatical, word or spelling errors. Chief Complaint: 52-year-old male past medical history of hypertension, GERD, liver disease, sleep apnea, gout presents with feelings of anxiety, epigastric abdominal pain and inability to take a full breath. History of Present Illness: Patient is a 52-year-old male. Patient was recently admitted to the hospital for concerns of possible left the septic arthritis. He had a arthroscopic procedure showing severe gout with Crystal deposition in his synovium. He presents today because of multiple complaints. He states that she's been having multiple abnormal blood pressure readings at home injuring between 150 and 250 systolics. He uses a automated blood pressure device from the local grocery store. Patient does have history of hypertension. He does take chlorothiazide amlodipine. Patient has had multiple adjustments to his blood pressure medications due to reactions from previous blood pressure medications. Patient also feels as though he can't take a full breath. He does complain of some mild chest tightness. He states that this is likely secondary to anxiety. Denies any history of blood clot. Denies any sharp pain however he does report some tightness with deep inspiration. He also feels as though his epigastric symptoms are occurring after he eats. Today he ate a large breakfast and felt as though he can't burp but he feels like he has to burp. The ROS documented in this emergency department record has been reviewed and confirmed by me. Those systems with pertinent positive or negative responses have been documented in the HPI. All other systems are other negative and/or noncontributory. PHYSICAL EXAM: General Impression: Alert and oriented x3, not in acute distress HEENT: Normocephalic atraumatic, extra-ocular movements intact, pupils equal and reactive to light bilaterally, mucous membranes moist. Cardiovascular: Heart regular rate and rhythm, S1&S2 audible, no murmurs, rubs or gallops Chest: Lungs clear to auscultation bilaterally, no rhonchi, no wheeze, no rales Abdomen: Bowel sounds present, abdomen soft, non-tender, non-distended, no organomegaly Musculoskeletal: Pulses present and equal in all extremities, no peripheral edema Motor: Power 5/5 bilaterally, no focal deficits noted Neurological: CN II-XII grossly intact, no focal motor or sensory deficits noted Skin: Intact with no visualized rashes, varicosities to his bilateral lower extremities Psych: Normal affect and mood ED course: 52-year-old male with multiple complaints. Signs upon arrival are within acceptable limits.Laboratory evaluation obtained. CBC, coag panel obtained showing no acute processes. Patient elevated d-dimer 0.77. CT angios obtained showing no acute processes. Metabolic panel is negative. KUB x-ray shows nonacute abdomen. Patient given GI cocktail and anxiolytic. He is reevaluated and found to be improved. Patient given prescription for Xanax, Protonix and given outpatient GI referral. EKG interpretation: Ventricular rate 82, normal sinus rhythm, NJ interval 150, QS 94, QTC 443. No NJ prolongation, no QTC prolongation, no ST or T-wave changes noted. EKG compared to Gen. 2018 showing no changes. Overall, this EKG is unremarkable - Related Data Home Medications Medication Instructions Recorded Confirmed Acetaminophen-Codeine 300-30mg 1 tab PO Q6H PRN 09/01/14 05/12/18 [Tylenol w/codeine #3] Cyclobenzaprine [Flexeril] 10 mg PO TID PRN 09/01/14 05/12/18 amLODIPine [Norvasc] 10 mg PO DAILY 09/01/14 05/12/18 Hydrochlorothiazide [Hydrodiuril] 12.5 mg PO DAILY 04/09/18 05/12/18 buPROPion XL [Wellbutrin XL] 150 mg PO DAILY 04/09/18 05/12/18 Previous Rx's Medication Instructions Recorded ALPRAZolam [Xanax] 0.25 mg PO Q8HR PRN 3 Days #9 tab 05/12/18 Pantoprazole [Protonix] 0 mg PO DAILY #24 tablet. 05/12/18 Allergies Allergy/AdvReac Type Severity Reaction Status Date / Time Beta-Blockers Allergy Swelling Verified 05/12/18 16:20 (Beta-Adrenergic Bloc lisinopril Allergy Swelling Verified 05/12/18 16:20 olmesartan Allergy Swelling Verified 05/12/18 16:20 Review of Systems ROS Statement: Those systems with pertinent positive or pertinent negative responses have been documented in the HPI. ROS Other: All systems not noted in ROS Statement are negative. Past Medical History Past Medical History: Eye Disorder, GERD/Reflux, Hypertension, Liver Disease, Musculoskeletal Disorder, Neurologic Disorder, Osteoarthritis (OA), Skin Disorder, Sleep Apnea/CPAP/BIPAP Additional Past Medical History / Comment(s): gout, lower extremity numbness, eczema, obstructive sleep apnea on CPAP History of Any Multi-Drug Resistant Organisms: None Reported Past Surgical History: Back Surgery, Bowel Resection, Orthopedic Surgery Additional Past Surgical History / Comment(s): 4 surgeries to lower back, back fusion, 4 left elbow surgeries, bowel perforation, 18" of bowel removed Past Anesthesia/Blood Transfusion Reactions: No Reported Reaction Past Psychological History: Depression Smoking Status: Former smoker Past Alcohol Use History: Daily Past Drug Use History: None Reported - Past Family History Mother Family Medical History: Hypertension Father Family Medical History: Diabetes Mellitus, Hypertension General Exam Limitations: no limitations Course Vital Signs 05/12/18 05/12/18 05/12/18 16:09 16:18 16:30 Temperature 99.3 F Pulse Rate 95 80 Respiratory 18 18 Rate Blood Pressure 151/104 151/104 151/104 O2 Sat by Pulse 100 97 97 Oximetry 05/12/18 05/12/18 05/12/18 17:00 17:30 17:53 Temperature Pulse Rate 79 82 85 Respiratory 18 18 18 Rate Blood Pressure 150/101 129/72 127/76 O2 Sat by Pulse 97 95 Oximetry 05/12/18 05/12/18 05/12/18 18:00 18:30 19:00 Temperature Pulse Rate 85 82 77 Respiratory 18 18 18 Rate Blood Pressure 127/76 123/71 142/92 O2 Sat by Pulse 93 L 97 99 Oximetry 05/12/18 05/12/18 19:47 20:07 Temperature Pulse Rate 80 84 Respiratory 16 16 Rate Blood Pressure 159/108 130/90 O2 Sat by Pulse 97 97 Oximetry Medical Decision Making - Lab Data Result diagrams: 05/12/18 17:21 05/12/18 17:21 Lab Results 05/12/18 05/12/18 05/12/18 Range/Units 17:21 17:21 17:21 WBC 10.5 (3.8-10.6) k/uL RBC 4.95 (4.30-5.90) m/uL Hgb 15.6 (13.0-17.5) gm/dL Hct 45.8 (39.0-53.0) % MCV 92.6 (80.0-100.0) fL MCH 31.6 (25.0-35.0) pg MCHC 34.1 (31.0-37.0) g/dL RDW 13.2 (11.5-15.5) % Plt Count 210 (150-450) k/uL Neutrophils % 75 % Lymphocytes % 15 % Monocytes % 5 % Eosinophils % 2 % Basophils % 1 % Neutrophils # 7.9 H (1.3-7.7) k/uL Lymphocytes # 1.5 (1.0-4.8) k/uL Monocytes # 0.5 (0-1.0) k/uL Eosinophils # 0.2 (0-0.7) k/uL Basophils # 0.1 (0-0.2) k/uL PT 11.3 (9.0-12.0) sec INR 1.1 (<1.2) D-Dimer 0.77 H (<0.60) mg/L FEU Sodium 142 (137-145) mmol/L Potassium 4.1 (3.5-5.1) mmol/L Chloride 106 (98-107) mmol/L Carbon Dioxide 26 (22-30) mmol/L Anion Gap 10 mmol/L BUN 11 (9-20) mg/dL Creatinine 0.73 (0.66-1.25) mg/dL Est GFR (CKD-EPI)AfAm >90 (>60 ml/min/1.73 sqM) Est GFR (CKD-EPI)NonAf >90 (>60 ml/min/1.73 sqM) Glucose 91 (74-99) mg/dL Calcium 9.5 (8.4-10.2) mg/dL Total Bilirubin 1.2 (0.2-1.3) mg/dL AST 110 H (17-59) U/L ALT 104 H (21-72) U/L Alkaline Phosphatase 88 (38-126) U/L Total Protein 8.0 (6.3-8.2) g/dL Albumin 4.6 (3.5-5.0) g/dL Lipase 136 (23-300) U/L Disposition Clinical Impression: Dyspepsia Disposition: HOME SELF-CARE Condition: Good Instructions (If sedation given, give patient instructions): Indigestion (ED) Prescriptions: ALPRAZolam [Xanax] 0.25 mg PO Q8HR PRN 3 Days #9 tab PRN Reason: Anxiety Pantoprazole [Protonix] 0 mg PO DAILY #24 tablet.dr Is patient prescribed a controlled substance at d/c from ED?: No Referrals: Lonnie Valles MD [Primary Care Provider] - 1-2 days Apollo Jeter MD [STAFF PHYSICIAN] - 1-2 days Time of Disposition: 20:36
[2018-05-12 17:34] LABS: Basophils # (A) 0.1 k/uL (0-0.2); Basophils % (A) 1 %; Eosinophils # (A) 0.2 k/uL (0-0.7); Eosinophils % (A) 2 %; HCT 45.8 % (39.0-53.0); HGB 15.6 gm/dL (13.0-17.5); Lymphocytes # (A) 1.5 k/uL (1.0-4.8); Lymphocytes % (A) 15 %; MCH 31.6 pg (25.0-35.0); MCHC 34.1 g/dL (31.0-37.0); MCV 92.6 fL (80.0-100.0); Mean Platelet Volume 7.2; Monocytes # (A) 0.5 k/uL (0-1.0); Monocytes % (A) 5 %; Neutrophils # (A) 7.9 k/uL (1.3-7.7); Neutrophils % (A) 75 %; Platelet Count 210 k/uL (150-450); RBC 4.95 m/uL (4.30-5.90); RDW 13.2 % (11.5-15.5); WBC 10.5 k/uL (3.8-10.6)
[2018-05-12 17:46] LABS: ALT 104 U/L (21-72); AST 110 U/L (17-59); Albumin 4.6 g/dL (3.5-5.0); Alkaline Phosphatase 88 U/L (38-126); Anion Gap 10 mmol/L; Blood Urea Nitrogen 11 mg/dL (9-20); Calcium 9.5 mg/dL (8.4-10.2); Carbon Dioxide 26 mmol/L (22-30); Chloride 106 mmol/L (98-107); Glucose 91 mg/dL (74-99); INR 1.1 (<1.2); Lipase 136 U/L (23-300); Potassium 4.1 mmol/L (3.5-5.1); Prothrombin Time 11.3 sec (9.0-12.0); Sodium 142 mmol/L (137-145); Total Bilirubin 1.2 mg/dL (0.2-1.3)
[2018-05-12 17:59] LABS: D-Dimer 0.77 mg/L FEU (<0.60)
--- NOTE | 2018-05-12 18:43 | XR ---
Abdomen single view. History abdominal pain. Comparison September 01, 2014. FINDINGS: 2 views upright show no sign of intestinal obstruction or pneumoperitoneum. Fecal pattern is normal. There are surgical clips in the right mid abdomen. There is lumbar spine posterior fusion surgery. Th ere are no pathologic calcifications over the kidneys. Lung bases are clear. Impression new left nonacute abdomen. No change.
--- NOTE | 2018-05-12 18:49 | XR ---
EXAMINATION TYPE: XR chest 2V DATE OF EXAM: 05/12/2018 COMPARISON: 04/11/2018 HISTORY: Hypertension. Dizziness TECHNIQUE: Frontal and lateral views of the chest are obtained. FINDINGS: Heart and mediastinum are normal. Lungs are clear. Diaphragm is normal. Bony thorax appear s normal. IMPRESSION: No active cardiopulmonary disease. No change.
--- NOTE | 2018-05-12 18:58 | CT ---
EXAMINATION TYPE: CT angio chest DATE OF EXAM: 05/12/2018 6:43 PM COMPARISON: None HISTORY: SOB CT DLP: 1020.6 mGycm Automated exposure control for dose reduction was used. CONTRAST: CTA scan of the thorax is performed with IV Contrast, patient injected with 85cc mL of Isovue 370, pu lmonary embolism protocol. . There are 3-D post processed images. FINDINGS: There is mild groundglass interstitial density in the lungs. There is no evidence of a pulmonary mass . There is no pulmonary consolidation. Heart size is normal. There is no pericardial effusion. There are no hilar masses. There is no mediastinal adenopathy. Thoracic aorta shows no aneurysm or dissection. I see no filling defects in the pulmonary arteries. T here is normal contrast opacification of the pulmonary arteries. The bony thorax is intact. There is mild spurring in the thoracic spine. There is no compression frac ture. IMPRESSION: NO EVIDENCE OF PULMONARY EMBOLISM. NO EVIDENCE OF AORTIC ANEURYSM OR DISSECTION. INTERSTITIAL DIFFUSE PULMONARY INFILTRATES. THIS COULD RELATE TO MILD INTERSTITIAL PNEUMONIA.
[2018-05-12] MEDS ORDERED: MAG HYDROX/AL HYDROX/SIMETH 30 ML, HYOSCYAMINE ELIXIR 10 ML, CIMETIDINE HCL 300 MG, LID... PO STA ×4 (19:26)
[2018-05-12] MEDS ORDERED: LORazepam 2 MG/ML INJ IV STA (19:27)
[2018-05-12 20:59] VITALS: BP 141/93; PULSE 86; RESP 19; TEMP 97.9
== END 2018-05-12 20:45 | disposition home or self-care (01) ==
LOC: EC 16:07
DX: R10.13 Epigastric pain (principal); R07.89 Other chest pain; F41.9 Anxiety disorder, unspecified; I10 Essential (primary) hypertension; M19.90 Unspecified osteoarthritis, unspecified site; F32.9 Major depressive disorder, single episode, unspecified; G47.33 Obstructive sleep apnea (adult) (pediatric); Z99.89 Dependence on other enabling machines and devices; Z87.891 Personal history of nicotine dependence; Z79.899 Other long term (current) drug therapy; Z88.8 Allergy status to other drugs, medicaments and biological substances
CPT/HCPCS: 36415; 93005; 85379; 80053; 83690; 85025; 85610; 71046; 74018; 71275; 99285; 96374; 96375; J2060; C9113; Q9967

== ENCOUNTER → 2018-05-15 | Outpatient (CLI) | payer BC ==
--- NOTE | 2018-05-15 15:50 | ECHOS ---
STRESS ECHOCARDIOGRAM DATE OF SERVICE: 05/15/2018 INDICATIONS: Hypertension. Chest discomfort. MEDICATIONS: Amlodipine, Wellbutrin, Uloric. BASELINE HEART RATE: 76 BASELINE BLOOD PRESSURE: 184/97 MAXIMUM HEART RATE: 149 MAXIMUM BLOOD PRESSURE: 205/109 85% MPHR: 144 100% MPHR: 169 METS: 5.6 MAXIMUM STAGE REACHED: 2 TOTAL EXERCISE TIME: 4:00 CLINICAL INFORMATION: STRESS DATA: Pre-testing physical examination showed a heart rate of 86, pressure of 184/97 mmHg. Baseline EKG showed sinus mechanism. The patient exercised on the treadmill according to Derrell protocol for a total of 4 minutes and achieved 5.6 METS. Max heart rate was 149, which is about 88% of maximum predicted heart rate. Maximum blood pressure was 205/109 mmHg. Clinically the patient did not have any symptoms of chest pain or discomfort and the EKG did not show any significant ST or T-wave abnormalities concerning for ischemia. ECHOCARDIOGRAM IMAGES: Echocardiogram images from parasternal long axis view, parasternal short axis view, apical 4-chamber and apical 2-chamber view were obtained as the baseline images at the peak of the heart rate as well as on recovery. The echocardiogram images showed good augmentation of the left ventricular systolic function without any evidence of wall motion abnormalities concerning for ischemia. CONCLUSION: 1. Poor exercise tolerance. 2. Normal EKG in response to exercise. 3. Normal echocardiogram in response to exercise. MMODL / IJN: [id number] /
== END ==
LOC: RADNMMAIN 10:04
PROVIDERS: ATTEND Family Medicine
DX: I10 Essential (primary) hypertension (principal)
CPT/HCPCS: 93351

== ENCOUNTER 2018-06-06 09:31 | Day surgery (SDC) | payer BC ==
[2018-06-04 11:19] VITALS: BMI 38.2
[~2018-06-06 09:31] MED LIST: LACTATED RINGERS 1,000 ML IV SCH; LIDOCAINE 1% 20 ML VIAL (10MG/ML) FOR IV START INTRADERMA PRN
[2018-06-06 11:04] VITALS: RESP 16; TEMP 96.9
[2018-06-06] MEDS ORDERED: PROPOFOL 10 MG/ML 20 ML VIAL IV ONE (11:04)
[2018-06-06] MEDS ORDERED: LIDOCAINE 1% INJ 10MG/ML (20 ML MDV) ONE (11:04)
[2018-06-06] MEDS ORDERED: fentaNYL (PF) 50 MCG/ML 2 ML AMP ONE (11:04)
[2018-06-06 11:54] VITALS: BP 132/86; PULSE 63
--- NOTE | 2018-06-06 12:25 | P.PCN ---
Date of Procedure: 06/06/18 Procedure(s) Performed: Procedures: 1. Esophagogastroduodenoscopy and biopsy. 2. Total colonoscopy. Preoperative diagnosis: Abdominal distention/gaseous and screening for colon cancer. Postoperative diagnosis: 1. Mild gastritis and duodenitis with no obvious esophagitis or complaints complicated reflux disease. 2. Diverticulosis. 4. Biopsies obtained from the duodenum, antrum and esophagus. Preparation: HalfLytely prep. Sedation: Was provided by anesthesia. Brief clinical history: The patient is a 52-year-old male who was evaluated in the office earlier this month regarding abdominal distention/gaseous. This has been going on for the past few months. He was in the emergency room last month and reported weight loss as well for lack of appetite. In addition, he is scheduled for colon cancer screening because of his age as his risk factor in addition to his symptoms. Procedure: With the patient on his left lateral decubitus position and after informed consent and adequate sedation, I passed the Olympus-GIF H 190 video upper endoscope through the cricopharyngeus down the esophagus. GE junction was around 42-43 cm from the incisors and there was no definite hiatal hernia or obvious esophagitis or complicated reflux disease. The endoscope was then passed into the stomach which was insufflated with air and inspected in detail including the retroflex view in the cardia. There was some mottling and erythema in the antrum but no ulcers or erosions. Pyloric channel, duodenal b ulb showed minimal erythema , post bulbar area and descending duodenum appeared within normal limits. I obtained biopsies from the duodenum, antrum and esophagus then the endoscope was withdrawn and I proceeded with the colonoscopy. Perianal area did not show any fissures or fistulas. There were no masses felt on digital rectal examination. The Olympus CFH 190L video colonoscope was then inserted in the rectum in the usual fashion and advanced to the cecum. Several diverticular orifices were seen scattered in the sigmoid and right side with no evidence of acute diverticulitis or strictures. The mucosa appeared healthy. There was no significant polyps or tumors. I retroflexed the endoscope in the rectum before the endoscope was withdrawn. The patient tolerated the procedure well. Plan: The patient was reassured. Will await biopsy results. Discussed dietary measures. Further plans can be made based on his course and biopsy results. I will keep you updated on her progress.
== END 2018-06-06 12:47 | disposition home or self-care (01) ==
LOC: ORWHC2ENDO 09:31
DX: Z12.11 Encounter for screening for malignant neoplasm of colon (principal); K29.50 Unspecified chronic gastritis without bleeding; K57.30 Diverticulosis of large intestine without perforation or abscess without bleeding; I10 Essential (primary) hypertension; K21.9 Gastro-esophageal reflux disease without esophagitis; M19.90 Unspecified osteoarthritis, unspecified site; G47.33 Obstructive sleep apnea (adult) (pediatric); M10.9 Gout, unspecified; Z79.1 Long term (current) use of non-steroidal anti-inflammatories (NSAID); Z79.899 Other long term (current) drug therapy; Z88.8 Allergy status to other drugs, medicaments and biological substances; F41.9 Anxiety disorder, unspecified
CPT/HCPCS: 88305; 43239; J2001; J3010; J2704; G0121

== ENCOUNTER → 2018-07-04 | Outpatient (CLI) | payer BC ==
--- NOTE | 2018-07-04 08:14 | US ---
EXAMINATION TYPE: US abdomen limited DATE OF EXAM: 07/04/2018 COMPARISON: None CLINICAL HISTORY: R10.13 Epigastric pain, Abnormal Kidney Function. NPO, abnormal labs EXAM MEASUREMENTS: Liver Length: 21.1 cm Gallbladder Wall: 0.2 cm CHD: 0.5 cm Right Kidney: 11.8 x 6.5 x 5.5 cm Pancreas: Appears echogenic in appearance Liver: Appears echogenic, heterogenous and enlarged. Gallbladder: wnl Evidence for sonographic Mcfarland's sign: neg CBD: Obscured by overlying bowel gas CHD: wnl Right Kidney: lower pole obscured by overlying bowel gas IMPRESSION: 1. Liver is enlarged and heterogeneous. Findings nonspecific can be seen with hepatic steatosis, diff use hepatocellular disease, or hepatitis.
== END | disposition home or self-care (01) ==
LOC: RADUSWWP 07:07
PROVIDERS: ATTEND Family Medicine
DX: R16.0 Hepatomegaly, not elsewhere classified (principal); R94.5 Abnormal results of liver function studies; Z88.8 Allergy status to other drugs, medicaments and biological substances
CPT/HCPCS: 76705

== ENCOUNTER → 2018-08-29 | Outpatient (CLI) | payer BC ==
--- NOTE | 2018-08-30 08:24 | XR ---
EXAMINATION TYPE: XR cervical spine comp DATE OF EXAM: 08/29/2018 COMPARISON: NONE HISTORY: Chronic pain TECHNIQUE: Four views are submitted. FINDINGS: The odontoid is intact. There are no compression deformities. The prevertebral soft tissue structur es are within normal limits. Hypertrophic and degenerative disc disease with facet arthropathy at al l levels. IMPRESSION: 1. Multilevel degenerative change with multilevel facet arthropathy. Recommend follow-up MRI..
== END | disposition home or self-care (01) ==
LOC: RADXRMAIN 16:08
PROVIDERS: ATTEND Family Medicine
DX: M47.812 Spondylosis without myelopathy or radiculopathy, cervical region (principal); M46.82 Other specified inflammatory spondylopathies, cervical region
CPT/HCPCS: 72050

== ENCOUNTER 2018-11-07 11:44 | Emergency (ER) | payer BC ==
[2018-11-07] MEDS ORDERED: SODIUM CHLORIDE 0.9% 1,000 ML IV STA (12:12)
--- NOTE | 2018-11-07 12:42 | ED ---
SOB HPI - General Chief Complaint: Shortness of Breath Stated Complaint: elevated BP Time Seen by Provider: 11/07/18 11:58 Source: patient, RN notes reviewed, old records reviewed Mode of arrival: ambulatory Limitations: no limitations - History of Present Illness Initial Comments: This is a 53-year-old male the ER for evaluation. Patient resents today for evaluation regards to abnormal blood pressure dizziness occasional shortness of breath leg swelling. Patient has history of hypertension, no recent medication changes. No recent dietary changes. No recent significant waking or weight loss. No recent travel history or sick contacts. No recent illness. Patient states his blood pressure the last 3-4 days been running significantly high, he did go to his primary care doctor was sent to ER for further evaluation today. MD Complaint: shortness of breath -: days(s) (4) Severity: moderate Severity scale (1-10): 5 Quality: aching (Headache), throbbing (Headache) Consistency: intermittent Improves With: nothing Worsens With: nothing Associated Symptoms: palpitations, diaphoresis, nausea/vomiting, other (Dizziness) Treatments Prior to Arrival: none - Related Data Home Medications Medication Instructions Recorded Confirmed Acetaminophen-Codeine 300-30mg 1 tab PO Q6H PRN 09/01/14 11/07/18 [Tylenol w/codeine #3] Cyclobenzaprine [Flexeril] 10 mg PO TID PRN 09/01/14 11/07/18 amLODIPine [Norvasc] 10 mg PO DAILY 09/01/14 11/07/18 Hydrochlorothiazide [Hydrodiuril] 12.5 mg PO DAILY 04/09/18 11/07/18 Meloxicam [Mobic] 15 mg PO DAILY 11/07/18 11/07/18 Valsartan 40 mg PO DAILY 11/07/18 11/07/18 Allergies Allergy/AdvReac Type Severity Reaction Status Date / Time Beta-Blockers Allergy Swelling Verified 11/07/18 12:03 (Beta-Adrenergic Bloc lisinopril Allergy tongue Verified 11/07/18 12:03 Swelling olmesartan Allergy tongue Verified 11/07/18 12:03 Swelling losartan AdvReac lightheaded, Verified 11/07/18 12:03 tingling in face and lips Review of Systems ROS Statement: Those systems with pertinent positive or pertinent negative responses have been documented in the HPI. ROS Other: All systems not noted in ROS Statement are negative. Past Medical History Past Medical History: Chest Pain / Angina, GERD/Reflux, Hypertension, Osteoarthritis (OA), Skin Disorder, Sleep Apnea/CPAP/BIPAP Additional Past Medical History / Comment(s): gout, lower extremity numbness from sciatic nerve, eczema, occ irregular heartbeat, hx ulcer, 1995 colon perforation History of Any Multi-Drug Resistant Organisms: None Reported Past Surgical History: Back Surgery, Bowel Resection, Orthopedic Surgery Additional Past Surgical History / Comment(s): 4 surgeries to lower back, spinal fusion 2009, laminectomy x 3, 4 left elbow surgeries, 18" of colon removed d/t perforation Past Anesthesia/Blood Transfusion Reactions: No Reported Reaction Past Psychological History: Anxiety Smoking Status: Former smoker Past Alcohol Use History: None Reported Past Drug Use History: None Reported - Past Family History Mother Family Medical History: No Reported History Father Family Medical History: Diabetes Mellitus, Hypertension General Exam Limitations: no limitations General appearance: alert, in no apparent distress Head exam: Present: atraumatic, normocephalic, normal inspection Eye exam: Present: normal appearance, PERRL, EOMI. Absent: scleral icterus, conjunctival injection, periorbital swelling ENT exam: Present: normal exam, mucous membranes moist Neck exam: Present: normal inspection. Absent: tenderness, meningismus, lymphadenopathy Respiratory exam: Present: normal lung sounds bilaterally. Absent: respiratory distress, wheezes, rales, rhonchi, stridor Cardiovascular Exam: Present: regular rate, normal rhythm, normal heart sounds. Absent: systolic murmur, diastolic murmur, rubs, gallop, clicks GI/Abdominal exam: Present: soft, normal bowel sounds. Absent: distended, tenderness, guarding, rebound, rigid Extremities exam: Present: normal inspection, full ROM, normal capillary refill. Absent: tenderness, pedal edema, joint swelling, calf tenderness Back exam: Present: normal inspection Neurological exam: Present: alert, oriented X3, CN II-XII intact Psychiatric exam: Present: normal affect, normal mood Skin exam: Present: warm, dry, intact, normal color. Absent: rash Course Vital Signs 11/07/18 11:48 Temperature 97.9 F Pulse Rate 86 Respiratory 22 Rate Blood Pressure 158/102 O2 Sat by Pulse 100 Oximetry - Reevaluation(s) Reevaluation #1: 11/07/18 15:08 Medical records reviewed Reevaluation #2: 11/07/18 15:08 (Patient had symptoms with regarding symptoms at length, questions answered Reevaluation #3: 11/07/18 15:08 Dr. Valles will see patient in office Medical Decision Making - Medical Decision Making 53 male the ER for evaluation. Today patient's presenting for evaluation regards to elevated blood pressure, uncontrolled blood pressure with occasional symptoms ranging from dizziness headache shortness of breath. Patient's blood pressure remains normal without treatment here. Patient will follow-up with Dr. Valles in the office - Lab Data Result diagrams: 11/07/18 12:37 11/07/18 12:37 Lab Results 11/07/18 11/07/18 11/07/18 Range/Units 12:37 12:37 12:37 WBC 9.2 (3.8-10.6) k/uL RBC 4.98 (4.30-5.90) m/uL Hgb 15.7 (13.0-17.5) gm/dL Hct 45.4 (39.0-53.0) % MCV 91.2 (80.0-100.0) fL MCH 31.6 (25.0-35.0) pg MCHC 34.7 (31.0-37.0) g/dL RDW 15.3 (11.5-15.5) % Plt Count 210 (150-450) k/uL Neutrophils % 69 % Lymphocytes % 21 % Monocytes % 5 % Eosinophils % 4 % Basophils % 1 % Neutrophils # 6.3 (1.3-7.7) k/uL Lymphocytes # 1.9 (1.0-4.8) k/uL Monocytes # 0.4 (0-1.0) k/uL Eosinophils # 0.3 (0-0.7) k/uL Basophils # 0.1 (0-0.2) k/uL PT 11.0 (9.0-12.0) sec INR 1.0 (<1.2) APTT 25.0 (22.0-30.0) sec D-Dimer 0.30 (<0.60) mg/L FEU Sodium 141 (137-145) mmol/L Potassium 4.2 (3.5-5.1) mmol/L Chloride 101 (98-107) mmol/L Carbon Dioxide 28 (22-30) mmol/L Anion Gap 12 mmol/L BUN 15 (9-20) mg/dL Creatinine 0.84 (0.66-1.25) mg/dL Est GFR (CKD-EPI)AfAm >90 (>60 ml/min/1.73 sqM) Est GFR (CKD-EPI)NonAf >90 (>60 ml/min/1.73 sqM) Glucose 125 H (74-99) mg/dL Calcium 9.4 (8.4-10.2) mg/dL Magnesium 2.1 (1.6-2.3) mg/dL Total Bilirubin 0.7 (0.2-1.3) mg/dL AST 103 H (17-59) U/L ALT 101 H (21-72) U/L Alkaline Phosphatase 84 (38-126) U/L Creatine Kinase 452 H (55-170) U/L Troponin I (0.000-0.034) ng/mL NT-Pro-B Natriuret Pep pg/mL Total Protein 8.3 H (6.3-8.2) g/dL Albumin 4.9 (3.5-5.0) g/dL 11/07/18 11/07/18 Range/Units 12:37 12:37 WBC (3.8-10.6) k/uL RBC (4.30-5.90) m/uL Hgb (13.0-17.5) gm/dL Hct (39.0-53.0) % MCV (80.0-100.0) fL MCH (25.0-35.0) pg MCHC (31.0-37.0) g/dL RDW (11.5-15.5) % Plt Count (150-450) k/uL Neutrophils % % Lymphocytes % % Monocytes % % Eosinophils % % Basophils % % Neutrophils # (1.3-7.7) k/uL Lymphocytes # (1.0-4.8) k/uL Monocytes # (0-1.0) k/uL Eosinophils # (0-0.7) k/uL Basophils # (0-0.2) k/uL PT (9.0-12.0) sec INR (<1.2) APTT (22.0-30.0) sec D-Dimer (<0.60) mg/L FEU Sodium (137-145) mmol/L Potassium (3.5-5.1) mmol/L Chloride (98-107) mmol/L Carbon Dioxide (22-30) mmol/L Anion Gap mmol/L BUN (9-20) mg/dL Creatinine (0.66-1.25) mg/dL Est GFR (CKD-EPI)AfAm (>60 ml/min/1.73 sqM) Est GFR (CKD-EPI)NonAf (>60 ml/min/1.73 sqM) Glucose (74-99) mg/dL Calcium (8.4-10.2) mg/dL Magnesium (1.6-2.3) mg/dL Total Bilirubin (0.2-1.3) mg/dL AST (17-59) U/L ALT (21-72) U/L Alkaline Phosphatase (38-126) U/L Creatine Kinase (55-170) U/L Troponin I <0.012 (0.000-0.034) ng/mL NT-Pro-B Natriuret Pep 22 pg/mL Total Protein (6.3-8.2) g/dL Albumin (3.5-5.0) g/dL - EKG Data -: EKG Interpreted by Me (EKG shows normal sinus rhythm rate of 85, [place] 134, QRS 90, QTc 428) - Radiology Data Radiology results: report reviewed (Chest x-rays negative for acute disease), image reviewed Disposition Clinical Impression: Hypertension Disposition: HOME SELF-CARE Condition: Good Instructions (If sedation given, give patient instructions): Hypertension (ED) Is patient prescribed a controlled substance at d/c from ED?: No Referrals: Lonnie Valles MD [Primary Care Provider] - 1-2 days
[2018-11-07 12:56] LABS: Basophils # (A) 0.1 k/uL (0-0.2); Basophils % (A) 1 %; Eosinophils # (A) 0.3 k/uL (0-0.7); Eosinophils % (A) 4 %; HCT 45.4 % (39.0-53.0); HGB 15.7 gm/dL (13.0-17.5); Lymphocytes # (A) 1.9 k/uL (1.0-4.8); Lymphocytes % (A) 21 %; MCH 31.6 pg (25.0-35.0); MCHC 34.7 g/dL (31.0-37.0); MCV 91.2 fL (80.0-100.0); Mean Platelet Volume 7.3; Monocytes # (A) 0.4 k/uL (0-1.0); Monocytes % (A) 5 %; Neutrophils # (A) 6.3 k/uL (1.3-7.7); Neutrophils % (A) 69 %; Platelet Count 210 k/uL (150-450); RBC 4.98 m/uL (4.30-5.90); RDW 15.3 % (11.5-15.5); WBC 9.2 k/uL (3.8-10.6)
[2018-11-07] MEDS ORDERED: MORPHINE SULFATE 4 MG/ML SYRINGE IVP STA (12:56)
--- NOTE | 2018-11-07 12:59 | XR ---
EXAMINATION TYPE: XR chest 2V DATE OF EXAM: 11/07/2018 COMPARISON: 05/24/2018 TECHNIQUE: PA and lateral views submitted. HISTORY: Difficulty breathing FINDINGS: The lungs are clear and there is no pneumothorax, pleural effusion, or focal pneumonia. Hypertrophi c and degenerative change of the spine. IMPRESSION: 1. No acute process.
[2018-11-07 13:06] LABS: ALT 101 U/L (21-72); AST 103 U/L (17-59); African American GFR (CKD) >90 (>60 ml/min/1.73 sqM); Albumin 4.9 g/dL (3.5-5.0); Alkaline Phosphatase 84 U/L (38-126); Anion Gap 12 mmol/L; Blood Urea Nitrogen 15 mg/dL (9-20); Calcium 9.4 mg/dL (8.4-10.2); Carbon Dioxide 28 mmol/L (22-30); Chloride 101 mmol/L (98-107); Creatine Kinase 452 U/L (55-170); Glucose 125 mg/dL (74-99); Magnesium 2.1 mg/dL (1.6-2.3); Potassium 4.2 mmol/L (3.5-5.1); Sodium 141 mmol/L (137-145); Total Bilirubin 0.7 mg/dL (0.2-1.3); Total Protein 8.3 g/dL (6.3-8.2)
[2018-11-07 13:13] LABS: D-Dimer 0.3 mg/L FEU (<0.60)
[2018-11-07 15:21] VITALS: BP 111/83; PULSE 83; RESP 13; TEMP 98.6
== END 2018-11-07 15:15 | disposition home or self-care (01) ==
LOC: EC 11:44
DX: I10 Essential (primary) hypertension (principal); M19.90 Unspecified osteoarthritis, unspecified site; G47.30 Sleep apnea, unspecified; Z87.891 Personal history of nicotine dependence; Z88.8 Allergy status to other drugs, medicaments and biological substances; Z79.1 Long term (current) use of non-steroidal anti-inflammatories (NSAID); Z79.899 Other long term (current) drug therapy; Z98.1 Arthrodesis status; Z99.89 Dependence on other enabling machines and devices; Z82.49 Family history of ischemic heart disease and other diseases of the circulatory system
CPT/HCPCS: 99285; 96374; 96361; 36415; 93005; 85379; 83880; 80053; 82550; 83735; 84484; 85025; 85610; 85730; 71046; J2270

== ENCOUNTER → 2018-12-09 | Outpatient (CLI) | payer BC ==
--- NOTE | 2018-12-10 07:59 | ECHOF ---
Referral Reason:I10 Hypertension MEASUREMENTS -------- HEIGHT: 185.4 cm WEIGHT: 145.1 kg BP: 137/84 RVIDd: 3.4 cm (< 3.3) IVSd: 1.4 cm (0.6 - 1.1) LVIDd: 4.9 cm (3.9 - 5.3) LVPWd: 1.4 cm (0.6 - 1.1) IVSs: 2.0 cm LVIDs: 3.4 cm LVPWs: 1.7 cm LA Diam: 4.1 cm (2.7 - 3.8) LAESV Index (A-L): 32.39 ml/m Ao Diam: 3.7 cm (2.0 - 3.7) AV Cusp: 2.5 cm (1.5 - 2.6) MV EXCURSION: 15.271 mm (> 18.000) MV EF SLOPE: 77 mm/s (70 - 150) EPSS: 0.7 cm MV E Davin: 0.99 m/s MV DecT: 230 ms MV A Davin: 0.70 m/s MV E/A Ratio: 1.40 AV maxP.20 mmHg AV meanP.34 mmHg FINDINGS -------- Sinus rhythm. This was a technically good study. The left ventricular size is normal. There is moderate concentric left ventricular hypertrophy. O verall left ventricular systolic function is normal with, an EF between 55 - 60 %. The right ventricle is mildly enlarged. LA is midly dilated 29-33ml/m2. The right atrial size is normal. Interatrial and interventricular septum intact. The aortic valve is trileaflet, and appears structurally normal. No aortic stenosis or regurgitation. The mitral valve is normal. No mitral regurgitation. The tricuspid valve appears structurally normal. No regurgitation noted There is no pulmonic regurgitation present. The aortic root size is normal. Normal inferior vena cava with normal inspiratory collapse consistent with estimated right atrial pre ssure of 5 mmHg. There is no pericardial effusion. CONCLUSIONS -------- 1. Sinus rhythm. 2. This was a technically good study. 3. The left ventricular size is normal. 4. There is moderate concentric left ventricular hypertrophy. 5. Overall left ventricular systolic function is normal with, an EF between 55 - 60 %. 6. The right ventricle is mildly enlarged. 7. LA is midly dilated 29-33ml/m2. 8. The aortic valve is trileaflet, and appears structurally normal. No aortic stenosis or regurgitati on. 9. The mitral valve is normal. 10. The tricuspid valve appears structurally normal. 11. There is no pulmonic regurgitation present. 12. The aortic root size is normal. 13. Normal inferior vena cava with normal inspiratory collapse consistent with estimated right atrial pressure of 5 mmHg. 14. There is no pericardial effusion. CASHIER AND WAITER/WAITRESS: Odalis Cabrera RDCS
== END | disposition home or self-care (01) ==
LOC: RADECHMAIN 13:44
PROVIDERS: ATTEND Family Medicine
DX: I11.9 Hypertensive heart disease without heart failure (principal)
CPT/HCPCS: 93306

== ENCOUNTER → 2019-01-14 | Outpatient (CLI) | payer BC ==
[2019-01-14 20:29] LABS: ALT 93 U/L (10-49); AST 78 U/L (14-35); Creatine Kinase 261 U/L (35-257)
== END | disposition home or self-care (01) ==
LOC: LABWHC1 13:51
PROVIDERS: ATTEND Physical Medicine & Rehabilitation
DX: M51.34 Other intervertebral disc degeneration, thoracic region (principal); M50.120 Mid-cervical disc disorder, unspecified level; M51.17 Intervertebral disc disorders with radiculopathy, lumbosacral region; M47.812 Spondylosis without myelopathy or radiculopathy, cervical region; M99.18 Subluxation complex (vertebral) of rib cage; M79.10 Myalgia, unspecified site; G56.03 Carpal tunnel syndrome, bilateral upper limbs; M79.12 Myalgia of auxiliary muscles, head and neck; M54.5 Low back pain; G89.4 Chronic pain syndrome; R20.2 Paresthesia of skin; R51 Headache
CPT/HCPCS: 36415; 82550; 84450; 84460

== ENCOUNTER → 2019-05-07 | Outpatient (CLI) | payer OTHER ==
[2019-05-07 15:43] LABS: Basophils # (A) 0.1 k/uL (0-0.2); Basophils % (A) 1 %; Eosinophils # (A) 0.3 k/uL (0-0.7); Eosinophils % (A) 3 %; HCT 45.7 % (39.0-53.0); HGB 15.7 gm/dL (13.0-17.5); Lymphocytes # (A) 1.7 k/uL (1.0-4.8); Lymphocytes % (A) 20 %; MCH 31.9 pg (25.0-35.0); MCHC 34.3 g/dL (31.0-37.0); MCV 92.9 fL (80.0-100.0); Mean Platelet Volume 7.9; Monocytes # (A) 0.4 k/uL (0-1.0); Monocytes % (A) 5 %; Neutrophils % (A) 70 %; Platelet Count 230 k/uL (150-450); RBC 4.92 m/uL (4.30-5.90); RDW 13.2 % (11.5-15.5); WBC 8.7 k/uL (3.8-10.6)
--- NOTE | 2019-05-07 15:59 | XR ---
EXAMINATION TYPE: XR foot complete LT DATE OF EXAM: 05/07/2019 COMPARISON: 11/02/2015 HISTORY: Pain TECHNIQUE: Three views are submitted. FINDINGS: The osseous structures are intact. There is no acute fracture or dislocation. Joint spaces are p reserved. Severe arthropathy with hypertrophic change first MTP. Small spur off the base fifth metata rsal. Hammertoe deformities noted. Calcaneal spurs seen. IMPRESSION: 1. No acute fracture or dislocation. If symptoms persist, follow-up exam in 7 to 10 days could be ob tained. 2. Severe first MTP joint arthropathy. 3. Calcaneal spurs.
[2019-05-07 16:43] LABS: Erythrocyte Sedimentation Rate 13 mm/hr (0-15)
[2019-05-07 23:53] LABS: African American GFR (CKD) 99.8 (60.0-200.0); C Reactive Protein 0.8 mg/dL (0.0-0.8); Calcium 9.5 mg/dL (8.7-10.3); Non-African American GFR(CKD) 86.2 (60.0-200.0); Potassium 4.2 mmol/L (3.5-5.5); Uric Acid 11.2 mg/dL (3.7-8.7)
== END ==
LOC: LABWHC1 14:50
PROVIDERS: ATTEND Family Medicine
DX: M12.872 Other specific arthropathies, not elsewhere classified, left ankle and foot (principal); M77.32 Calcaneal spur, left foot
CPT/HCPCS: 36415; 80048; 84550; 85025; 85652; 86140

== ENCOUNTER → 2019-05-20 | Outpatient (CLI) | payer OTHER ==
--- NOTE | 2019-05-20 14:08 | XR ---
Lumbar spine HISTORY: Back pain 3 views of the lumbar spine Correlation to prior exam 07/25/2016 Postop changes are stable. There is multilevel spondylosis. Loss of disc height present L1-2, L3-4, L 4-5 and L5-S1. Alignment is stable and near-anatomic. Intervertebral spacing block present L3-4 as on prior. Lumbar vertebral bodies show preserved height. Bone mineralization is reduced. Surgical clip present in the right upper quadrant. Atherosclerotic vascular calcifications are noted within the aor ta. IMPRESSION: Stable postop changes, degenerative disc disease. Osteopenia.
== END | disposition home or self-care (01) ==
LOC: RADXRMAIN 13:41
PROVIDERS: ATTEND Nurse Practitioner Family
DX: M51.37 Other intervertebral disc degeneration, lumbosacral region (principal); Z98.890 Other specified postprocedural states
CPT/HCPCS: 72100

== ENCOUNTER → 2019-07-29 | Outpatient (CLI) | payer OTHER ==
[2019-07-29 11:46] LABS: HCT 44.6 % (39.0-53.0); HGB 14.4 gm/dL (13.0-17.5); MCH 30.3 pg (25.0-35.0); MCHC 32.3 g/dL (31.0-37.0); MCV 93.8 fL (80.0-100.0); Mean Platelet Volume 7.4; Platelet Count 266 k/uL (150-450); RBC 4.75 m/uL (4.30-5.90); RDW 13.6 % (11.5-15.5); WBC 9.1 k/uL (3.8-10.6)
[2019-07-29 12:03] LABS: INR 1.1 (<1.2)
[2019-07-29 13:13] LABS: Erythrocyte Sedimentation Rate 12 mm/hr (0-15)
[2019-07-29 16:10] LABS: % Iron Saturation 16.67 (15.00-50.00); ALT 40 U/L (10-49); AST 34 U/L (14-35); Albumin/Globulin Ratio 1.76 (1.60-3.17); Alkaline Phosphatase 84 U/L (41-126); C Reactive Protein <0.4 mg/dL (0.0-0.8); Globulin 2.5 g/dL (1.6-3.3); Iron 73 ug/dL (65-175); Total Bilirubin 0.6 mg/dL (0.3-1.2); Total Iron Binding Capacity 438 ug/dL (228-460); Total Protein 6.9 g/dL (6.2-8.2); Uric Acid 9.9 mg/dL (3.7-8.7)
[2019-07-29 16:13] LABS: Ferritin 172.2 ng/mL (22.0-322.0)
[2019-07-29 18:10] LABS: Hepatitis A Antibody IgM Non-Reactive (Non-Reactive); Hepatitis B Core IgM Non-Reactive (Non-Reactive); Hepatitis B Surface Antigen Non-Reactive (Non-Reactive); Hepatitis C IgG Antibody Non-Reactive (Non-Reactive)
== END | disposition home or self-care (01) ==
LOC: LABWHC1 10:02
PROVIDERS: ATTEND Orthopaedic Surgery
DX: R74.8 Abnormal levels of other serum enzymes (principal); M25.50 Pain in unspecified joint
CPT/HCPCS: 36415; 80074; 80076; 82728; 83540; 83550; 84550; 85027; 85610; 85652; 86140

== ENCOUNTER 2019-08-25 04:06 | Emergency (ER) | payer OTHER ==
[2019-08-25] MEDS ORDERED: predniSONE 20 MG TAB PO STA (04:29)
[2019-08-25] MEDS ORDERED: FAMOTIDINE 20 MG TAB PO STA (04:30)
[2019-08-25] MEDS ORDERED: diphenhydrAMINE 50 MG CAP PO STA (04:30)
[2019-08-25] MEDS ORDERED: cloNIDine HCL 0.2 MG TAB PO STA (04:45)
--- NOTE | 2019-08-25 05:58 | ED ---
Allergic Reaction HPI - General Chief complaint: Allergic Reaction Stated complaint: tongue swelling Time Seen by Provider: 08/25/19 04:20 Source: patient Mode of arrival: ambulatory Limitations: no limitations - History of Present Illness Initial Comments: This patient's 54-year-old man presenting to be evaluated for suspected reaction to his antihypertensive medicine. Patient states that he takes valsartan. He states that he had taken his evening dose tonight and then a short while thereafter he felt like his tongue and uvula were starting to swell. He had this similar reaction with lisinopril. Patient is denying other symptoms. Not currently having dyspnea, trouble with speech or swallowing. MD Complaint: other -: hour(s) Exposure: medication Symptoms: orolingual swelling Severity: mild Treatment Prior to Arrival: kai Previous Allergy History: prior ED visit(s), angioedema - Related Data Home Medications Medication Instructions Recorded Confirmed amLODIPine [Norvasc] 10 mg PO DAILY 09/01/14 06/05/19 Valsartan 40 mg PO DAILY 11/07/18 06/05/19 Allopurinol [Zyloprim] 300 mg PO DAILY 06/05/19 06/05/19 Ibuprofen 800 mg PO DAILY 06/05/19 06/05/19 metFORMIN HCL [Glucophage] 500 mg PO DAILY 06/05/19 06/05/19 Allergies Allergy/AdvReac Type Severity Reaction Status Date / Time Beta-Blockers Allergy Swelling Verified 08/25/19 04:15 (Beta-Adrenergic Bloc lisinopril Allergy tongue Verified 08/25/19 04:15 Swelling olmesartan Allergy tongue Verified 08/25/19 04:15 Swelling losartan AdvReac lightheaded, Verified 08/25/19 04:15 tingling in face and lips Review of Systems ROS Statement: Those systems with pertinent positive or pertinent negative responses have been documented in the HPI. ROS Other: All systems not noted in ROS Statement are negative. 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, eczema, occ irregular heartbeat, hx ulcer, 1996 colon perforation History of Any Multi-Drug Resistant Organisms: None Reported Past Surgical History: Back Surgery, Bowel Resection, Orthopedic Surgery Additional Past Surgical History / Comment(s): 4 surgeries to lower back, spinal fusion 2009, laminectomy x 3, 4 left elbow surgeries, 18" of colon removed d/t perforation Past Anesthesia/Blood Transfusion Reactions: No Reported Reaction Past Psychological History: Anxiety Smoking Status: Former smoker Past Alcohol Use History: None Reported Past Drug Use History: None Reported - Past Family History Mother Family Medical History: No Reported History Father Family Medical History: Diabetes Mellitus, Hypertension General Exam Limitations: no limitations General appearance: alert, in no apparent distress Head exam: Present: atraumatic, normocephalic Eye exam: Present: normal appearance. Absent: scleral icterus, conjunctival injection ENT exam: Present: mucous membranes moist, other (There is mild bilateral thickness of the tongue. Speech is clear with no dysarthria) Neck exam: Present: normal inspection, full ROM. Absent: lymphadenopathy Respiratory exam: Present: normal lung sounds bilaterally. Absent: respiratory distress, wheezes, rales, rhonchi, stridor Cardiovascular Exam: Present: regular rate, normal rhythm, normal heart sounds. Absent: systolic murmur, diastolic murmur, rubs, gallop GI/Abdominal exam: Present: soft. Absent: distended, tenderness, guarding Neurological exam: Present: alert Skin exam: Present: warm, dry, intact, normal color. Absent: rash Course Vital Signs 08/25/19 08/25/19 08/25/19 04:10 04:25 04:44 Temperature 98.0 F Pulse Rate 110 H Respiratory 18 16 16 Rate Blood Pressure 179/126 174/113 O2 Sat by Pulse 100 Oximetry 08/25/19 08/25/19 05:00 05:28 Temperature Pulse Rate 82 94 Respiratory 18 18 Rate Blood Pressure 157/100 155/99 O2 Sat by Pulse 98 97 Oximetry Medical Decision Making - Medical Decision Making Patient is observed in the emergency department and was beginning to have resolution of symptoms. No dyspnea. Patient is swallowing without difficulty. No dysarthria Disposition Clinical Impression: Angioedema Disposition: HOME SELF-CARE Condition: Good Instructions (If sedation given, give patient instructions): Angioedema (ED) Is patient prescribed a controlled substance at d/c from ED?: No Referrals: Lonnie Valles MD [Primary Care Provider] - 1-2 days
[2019-08-25 06:07] VITALS: BP 149/99; PULSE 79; RESP 16; TEMP 98.3
== END 2019-08-25 06:07 | disposition home or self-care (01) ==
LOC: EC 04:06
DX: T78.3XXA Angioneurotic edema, initial encounter (principal); F41.9 Anxiety disorder, unspecified; E11.9 Type 2 diabetes mellitus without complications; K21.9 Gastro-esophageal reflux disease without esophagitis; M19.90 Unspecified osteoarthritis, unspecified site; M10.9 Gout, unspecified; G47.30 Sleep apnea, unspecified; I25.2 Old myocardial infarction; Z79.84 Long term (current) use of oral hypoglycemic drugs; Z79.899 Other long term (current) drug therapy; Z88.8 Allergy status to other drugs, medicaments and biological substances; Z99.89 Dependence on other enabling machines and devices; Z87.891 Personal history of nicotine dependence
CPT/HCPCS: 99284; J7512

== ENCOUNTER → 2020-02-06 | Outpatient (CLI) | payer OTHER | END | disposition home or self-care (01) | LOC: LABWHC1 07:46 | PROVIDERS: ATTEND Internal Medicine Gastroenterology | DX: K76.0 Fatty (change of) liver, not elsewhere classified (principal) | CPT/HCPCS: 36415 ==

== ENCOUNTER → 2020-02-10 | Outpatient (CLI) | payer OTHER ==
--- NOTE | 2020-02-10 12:16 | ECHOS ---
STRESS ECHOCARDIOGRAM INDICATION: Dyspnea on exertion. Baseline EKG shows sinus rhythm, poor R-wave progression. Patient exercised on Derrell protocol for a total of 5.5 minutes achieving 7 METS, 90% of predicted maximal heart rate without chest pain. At peak exercise, there was 0.[address]-segment depression noted. Baseline echo shows normal left ventricular size, wall motion and systolic function. Postexercise, there is normal hyperdynamic response of all segments of myocardium noted. Lumason contrast was used to enhance endocardial visualization. CONCLUSION: 1. Poor exercise tolerance, very limited exercise tolerance. 2. Nondiagnostic EKG changes with exercise. 3. Negative stress echo. MMODL / IJN: [id number] /
== END | disposition home or self-care (01) ==
LOC: RADNMMAIN 09:04
PROVIDERS: ATTEND Internal Medicine Cardiovascular Disease
DX: R06.09 Other forms of dyspnea (principal)
CPT/HCPCS: C8930; Q9950; 93351

== ENCOUNTER → 2020-06-07 | Outpatient (CLI) | payer OTHER ==
--- NOTE | 2020-06-07 11:57 | US ---
EXAMINATION TYPE: US abdomen complete DATE OF EXAM: 06/07/2020 COMPARISON: NONE CLINICAL HISTORY: 54-year-old male R10.11 RUQ ABD PAIN. TECHNIQUE: Multiple sonographic images of the abdomen are obtained. FINDINGS: EXAM MEASUREMENTS: Liver Length: 17.0 cm Gallbladder Wall: 0.2 cm CBD: 0.6 cm Spleen: 15.1 cm Right Kidney: 12.8 x 5.5 x 6.0 cm Left Kidney: 13.8 x 5.5 x 5.3 cm Charcoal Unloader notes: Morbidly obese patient, technically difficult study. Pancreas: wnl as seen Liver: Increased attenuation, upper limits of normal in size Gallbladder: wnl Evidence for sonographic Mcfarland's sign: no CBD: wnl Spleen: Enlarged. There is a 1.9 cm round echogenic lesion with posterior through transmission noted. Right Kidney: Inferior pole obscured by bowel gas, measures large Left Kidney: measures large, inferior pole obscured by bowel gas Upper IVC: wnl Abd Aorta: distal and bifurcation obscure by bowel gas. Proximal portion ectatic at 2.9 cm. IMPRESSION: 1. Borderline liver size (17.0 cm) with mild hepatic steatosis. 2. No gallstones or biliary ductal dilatation. 3. Splenomegaly at 15.1 cm. 4. A round 1.9 cm echogenic lesion in the spleen may represent a hemangioma or hamartoma of the splee n. Recommend follow-up ultrasound in 6 months to ensure stability.
== END ==
LOC: RADUSWWP 09:30
PROVIDERS: ATTEND Family Medicine
DX: K76.0 Fatty (change of) liver, not elsewhere classified (principal); R16.1 Splenomegaly, not elsewhere classified
CPT/HCPCS: 76700

== ENCOUNTER → 2020-08-30 | Outpatient (CLI) | payer OTHER ==
[2020-08-30 16:05] LABS: HCT 50.1 % (39.6-50.0); HGB 16.2 g/dL (13.0-17.0); MCH 31.6 pg (27.0-32.0); MCHC 32.3 g/dL (32.0-37.0); MCV 97.9 fL (80.0-97.0); Mean Platelet Volume 10.7 fL (9.5-12.2); Platelet Count 271 X 10*3/uL (140-440); RBC 5.12 X 10*6/uL (4.40-5.60); RDW 14.5 % (11.5-14.5); WBC 9.63 X 10*3/uL (4.50-10.00)
[2020-08-30 16:29] LABS: INR 0.99 (0.90-1.11); Prothrombin Time 10.8 sec (9.9-11.9)
[2020-08-30 18:54] LABS: Albumin 4.7 g/dL (3.80-4.90); Albumin/Globulin Ratio 1.68 (1.60-3.17); Bilirubin, Conjugated 0.2 mg/dL (0.20-0.40); Bilirubin,Unconjugated 0.3 mg/dL; Globulin 2.8 g/dL (1.6-3.3); Total Bilirubin 0.5 mg/dL (0.3-1.2); Total Protein 7.5 g/dL (6.2-8.2)
== END | disposition home or self-care (01) ==
LOC: LABWHC1 08:45
PROVIDERS: ATTEND Physician Assistant
DX: R74.8 Abnormal levels of other serum enzymes (principal)
CPT/HCPCS: 36415; 80076; 85027; 85610

== ENCOUNTER → 2020-08-30 | Outpatient (CLI) | payer OTHER ==
--- NOTE | 2020-08-30 10:02 | XR ---
EXAMINATION TYPE: XR cervical spine comp DATE OF EXAM: 08/30/2020 COMPARISON: NONE HISTORY: Neck pain TECHNIQUE: Four views are submitted. FINDINGS: The odontoid is intact. There are no compression deformities. The prevertebral soft tissue structur es are within normal limits. Hypertrophic and degenerative changes seen throughout the cervical spin e with facet arthropathy. IMPRESSION: 1. Multilevel degenerative disc disease.
== END | disposition home or self-care (01) ==
LOC: RADXRMAIN 09:07
PROVIDERS: ATTEND Family Medicine
DX: M50.30 Other cervical disc degeneration, unspecified cervical region (principal)
CPT/HCPCS: 72050

== ENCOUNTER 2020-11-27 13:57 | Emergency (ER) | payer OTHER ==
[2020-11-27 14:45] VITALS: BP 154/86; PULSE 92; RESP 18; TEMP 98.2
--- NOTE | 2020-11-27 14:57 | ED ---
Extremity Problem HPI <Agusto Stock - Last Filed: 11/27/20 15:52> - General Source: patient Mode of arrival: wheelchair Limitations: no limitations <Ryan Severino - Last Filed: 11/27/20 16:03> - General Chief complaint: Extremity Problem,Nontraumatic Stated complaint: L knee swollen Time Seen by Provider: 11/27/20 14:55 - History of Present Illness Initial comments: 55-year-old male presents to emergency department with a chief complaint of right knee swelling. Patient report is occurred over the last 3-4 days. Patient reports decreased range of motion, pain and limited ambulation due to the pain. He denies any erythematous changes over the knee. Patient reports the knee has been drained multiple times by Dr. Gerber. He believes the inflammation secondary to gout. States had been taking the medication but is not helping. Denies any injuries to the knee or any paresthesias. (Ryan Severino) - Related Data Home Medications Medication Instructions Recorded Confirmed amLODIPine [Norvasc] 10 mg PO DAILY 09/01/14 06/05/19 Valsartan 40 mg PO DAILY 11/07/18 06/05/19 Ibuprofen 800 mg PO DAILY 06/05/19 06/05/19 allopurinoL [Zyloprim] 300 mg PO DAILY 06/05/19 06/05/19 metFORMIN HCL [Glucophage] 500 mg PO DAILY 06/05/19 06/05/19 Allergies Allergy/AdvReac Type Severity Reaction Status Date / Time Beta-Blockers Allergy Swelling Verified 11/27/20 14:43 (Beta-Adrenergic Bloc lisinopril Allergy tongue Verified 11/27/20 14:43 Swelling olmesartan Allergy tongue Verified 11/27/20 14:43 Swelling losartan AdvReac lightheaded, Verified 11/27/20 14:43 tingling in face and lips Review of Systems ROS Other: All systems not noted in ROS Statement are negative. <Agusto Stock - Last Filed: 11/27/20 15:52> ROS Other: All systems not noted in ROS Statement are negative. <Ryan Severino - Last Filed: 11/27/20 16:03> ROS Statement: Those systems with pertinent positive or pertinent negative responses have been documented in the HPI. 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, eczema, occ irregular heartbeat, hx ulcer, 1996 colon perforation History of Any Multi-Drug Resistant Organisms: None Reported Past Surgical History: Back Surgery, Bowel Resection, Orthopedic Surgery Additional Past Surgical History / Comment(s): 4 surgeries to lower back, spinal fusion 2009, laminectomy x 3, 4 left elbow surgeries, 18" of colon removed d/t perforation Past Anesthesia/Blood Transfusion Reactions: No Reported Reaction Past Psychological History: Anxiety Smoking Status: Former smoker Past Alcohol Use History: Daily Past Drug Use History: None Reported - Past Family History Mother Family Medical History: No Reported History Father Family Medical History: Diabetes Mellitus, Hypertension <Ryan Severino - Last Filed: 11/27/20 16:03> General Exam Limitations: no limitations General appearance: alert, in no apparent distress, obese Head exam: Present: atraumatic, normocephalic, normal inspection Eye exam: Present: normal appearance, PERRL, EOMI Pupils: Present: normal accommodation ENT exam: Present: normal exam, normal oropharynx, mucous membranes moist Neck exam: Present: normal inspection, full ROM. Absent: tenderness Respiratory exam: Present: normal lung sounds bilaterally. Absent: respiratory distress, wheezes, rales, rhonchi, stridor Cardiovascular Exam: Present: regular rate, normal rhythm, normal heart sounds. Absent: systolic murmur Extremities exam: Present: tenderness (Tenderness over the right knee), normal capillary refill, joint swelling (Right knee), other (Palpable DP and PT bilaterally). Absent: normal inspection (Swelling over the right knee. No erythematous changes over the knee), full ROM (Limited range of motion right knee), pedal edema, calf tenderness Back exam: Present: normal inspection, full ROM. Absent: tenderness Neurological exam: Present: alert, oriented X3 Psychiatric exam: Present: normal affect, normal mood Skin exam: Present: warm, dry, intact, normal color <Ryan Severino - Last Filed: 11/27/20 16:03> Course Vital Signs 11/27/20 14:43 Temperature 98.2 F Pulse Rate 92 Respiratory 18 Rate Blood Pressure 154/86 O2 Sat by Pulse 99 Oximetry Procedures - Joint Aspiration/Injection Consent Obtained: written consent Indications: R/O septic arthritis Side of Body: right Joint Aspirated: knee Ultrasound Guidance: No Skin Prep: sterile prep and drape (Chlorhexidine and sterile drape) Local Anesthesia Used: Lidocaine 1% Amount of Anesthesia Used (mLs): 4 Needle Size Used: 18G Syringe Size Used: Other (60) Fluid Obtained: clear (Yellow) Total Fluid Obtained (mls): 90 Patient Tolerated Procedure: well Complications: none <Agusto Stock - Last Filed: 11/27/20 15:52> Medical Decision Making <Ryan Severino - Last Filed: 11/27/20 16:03> - Medical Decision Making 55-year-old male presents to emergency department with chief complaint of right knee pain. On physical examination, patient is neurovascularly intact. Joint aspiration was performed by Dr. Stock. Fluid analysis pending. Patient advised to follow with Dr. Gerber. Return parameters were thoroughly discussed patient was understanding and agreeable (Ryan Severino) Disposition Is patient prescribed a controlled substance at d/c from ED?: No Time of Disposition: 15:51 <Agusto Stock - Last Filed: 11/27/20 15:52> Is patient prescribed a controlled substance at d/c from ED?: No <Ryan Severino - Last Filed: 11/27/20 16:03> Clinical Impression: Joint effusion of knee Disposition: HOME SELF-CARE Condition: Stable Instructions (If sedation given, give patient instructions): Swollen Knee Joint (ED) Additional Instructions: Follow-up with Dr. Gerber. Return to emergency department if symptoms worsen. Referrals: Lonnie Valles MD [Primary Care Provider] - 1-2 days Jason Velasquez MD [STAFF PHYSICIAN] - 1-2 days
[2020-11-27] MEDS ORDERED: LIDOCAINE 1% INJ 10MG/ML (20 ML MDV) SQ ONE (15:10)
[2020-11-28 10:15] LABS: Glucose, BF Source Body Fluid; Glucose, Body Fluid 78 mg/dL
== END 2020-11-27 16:18 | disposition home or self-care (01) ==
LOC: EC 13:57
DX: M25.461 Effusion, right knee (principal); E11.9 Type 2 diabetes mellitus without complications; I10 Essential (primary) hypertension; K21.9 Gastro-esophageal reflux disease without esophagitis; M10.9 Gout, unspecified; M19.90 Unspecified osteoarthritis, unspecified site; E66.9 Obesity, unspecified; Z79.1 Long term (current) use of non-steroidal anti-inflammatories (NSAID); Z79.84 Long term (current) use of oral hypoglycemic drugs; Z87.891 Personal history of nicotine dependence; Z82.49 Family history of ischemic heart disease and other diseases of the circulatory system; Z83.3 Family history of diabetes mellitus; Z88.8 Allergy status to other drugs, medicaments and biological substances; Z68.36 Body mass index [BMI] 36.0-36.9, adult
CPT/HCPCS: 99283; 20610; 89060; 87070; 87205; 82945; J2001

== ENCOUNTER → 2021-03-11 | Outpatient (CLI) | payer OTHER ==
[2021-03-11 15:03] LABS: HGB 13.9 g/dL (13.0-17.0); MCH 31.2 pg (27.0-32.0); MCHC 32.3 g/dL (32.0-37.0); MCV 96.6 fL (80.0-97.0); Mean Platelet Volume 10.4 fL (9.5-12.2); Platelet Count 230 X 10*3/uL (140-440); RBC 4.45 X 10*6/uL (4.40-5.60); RDW 13.4 % (11.5-14.5); WBC 6.28 X 10*3/uL (4.50-10.00)
[2021-03-11 15:35] LABS: INR 1.02 (0.90-1.11); Prothrombin Time 11.5 sec (9.9-11.9)
[2021-03-11 17:22] LABS: ALT 33 U/L (10-49); AST 35 U/L (14-35); Albumin 4.5 g/dL (3.8-4.9); Albumin/Globulin Ratio 1.83 (1.60-3.17); Alkaline Phosphatase 73 U/L (41-126); Bilirubin, Conjugated <0.20 mg/dL (0.20-0.40); Globulin 2.4 g/dL (1.6-3.3); Total Protein 6.9 g/dL (6.2-8.2)
== END | disposition home or self-care (01) ==
LOC: LABWHC1 07:46
PROVIDERS: ATTEND Physician Assistant
DX: R74.8 Abnormal levels of other serum enzymes (principal)
CPT/HCPCS: 36415; 80076; 85027; 85610

== ENCOUNTER → 2022-01-12 | Outpatient (CLI) | payer OTHER ==
[2022-01-12 18:40] LABS: HCT 45.2 % (39.6-50.0); HGB 15.5 g/dL (13.0-17.0); MCH 31.6 pg (27.0-32.0); MCHC 34.3 g/dL (32.0-37.0); MCV 92.1 fL (80.0-97.0); Mean Platelet Volume 10.3 fL (9.5-12.2); NRBC Per 100 WBC 0 /100 WBCS (0.0-0.0); Platelet Count 232 X 10*3/uL (140-440); RBC 4.91 X 10*6/uL (4.40-5.60); RDW 14.3 % (11.5-14.5); WBC 7.11 X 10*3/uL (4.50-10.00)
[2022-01-12 22:26] LABS: African American GFR (CKD) 120.1 (60.0-200.0); Albumin 4.7 g/dL (3.8-4.9); Albumin/Globulin Ratio 1.86 (1.60-3.17); Anion Gap 12.7 mmol/L (10.00-18.00); BUN/Creat Ratio 9.68 Ratio (12.00-20.00); Blood Urea Nitrogen 7.2 mg/dL (9.0-27.0); Calcium 9.4 mg/dL (8.7-10.3); Carbon Dioxide 25.9 mmol/L (20.0-27.5); Globulin 2.5 g/dL (1.6-3.3); Non-African American GFR(CKD) 103.6 (60.0-200.0); Potassium 4.4 mmol/L (3.5-5.5); Total Bilirubin 0.9 mg/dL (0.30-1.20); Total Protein 7.2 g/dL (6.2-8.2)
== END | disposition home or self-care (01) ==
LOC: LABWHC1 11:11
PROVIDERS: ATTEND Internal Medicine Gastroenterology
DX: K76.0 Fatty (change of) liver, not elsewhere classified (principal)
CPT/HCPCS: 36415; 80053; 85027

== ENCOUNTER → 2022-01-17 | Outpatient (CLI) | payer OTHER ==
[2022-01-17 14:28] LABS: Basophils # (A) 0.08 X 10*3/uL (0.00-0.10); Basophils % (A) 1.2 %; Eosinophils # (A) 0.03 X 10*3/uL (0.04-0.35); Eosinophils % (A) 0.5 %; HCT 46.3 % (39.6-50.0); HGB 15.2 g/dL (13.0-17.0); Immature Grans, Automated 1.4 %; Lymphocytes # (A) 1.57 X 10*3/uL (0.90-5.00); Lymphocytes % (A) 24.4 %; MCH 30.7 pg (27.0-32.0); MCHC 32.8 g/dL (32.0-37.0); MCV 93.5 fL (80.0-97.0); Mean Platelet Volume 10.4 fL (9.5-12.2); Monocytes % (A) 7.8 %; NRBC Per 100 WBC 0 /100 WBCS (0.0-0.0); Neutrophils # (A) 4.17 X 10*3/uL (1.80-7.70); Neutrophils % (A) 64.7 %; Platelet Count 242 X 10*3/uL (140-440); RBC 4.95 X 10*6/uL (4.40-5.60); RDW 13.9 % (11.5-14.5); WBC 6.44 X 10*3/uL (4.50-10.00)
[2022-01-17 14:42] LABS: ALT 49 U/L (10-49); AST 44 U/L (14-35); African American GFR (CKD) 114.2 (60.0-200.0); Albumin 4.4 g/dL (3.8-4.9); Albumin/Globulin Ratio 1.52 (1.60-3.17); Alkaline Phosphatase 78 U/L (41-126); BUN/Creat Ratio 9.92 Ratio (12.00-20.00); Blood Urea Nitrogen 8.3 mg/dL (9.0-27.0); Calcium 9.3 mg/dL (8.7-10.3); Carbon Dioxide 24.1 mmol/L (20.0-27.5); Chloride 102 mmol/L (96-109); Chol/HDL Ratio 2.92 Ratio; Globulin 2.9 g/dL (1.6-3.3); Glucose 117 mg/dL (70-110); LDL Cholesterol,Calculated 60.9 mg/dL (0.0-131.0); Non-African American GFR(CKD) 98.6 (60.0-200.0); Sodium 138 mmol/L (135-145); Total Protein 7.4 g/dL (6.2-8.2)
== END | disposition home or self-care (01) ==
LOC: LABWHC1 09:16
PROVIDERS: ATTEND Nurse Practitioner Family
DX: F10.20 Alcohol dependence, uncomplicated (principal); R42 Dizziness and giddiness
CPT/HCPCS: 36415; 80053; 80061; 84153; 84439; 84443; 85025

== ENCOUNTER → 2022-02-10 | Outpatient (CLI) | payer OTHER ==
--- NOTE | 2022-02-10 11:00 | US ---
EXAMINATION TYPE: US abdomen complete DATE OF EXAM: 02/10/2022 COMPARISON: 06/07/2020 CLINICAL HISTORY: R74.01 ELEVATION OF LEVELS OF LIVER TRANSAMINASE LEVELS. TECHNIQUE: Multiple sonographic images of the abdomen are obtained. FINDINGS: EXAM MEASUREMENTS: Liver Length: 19.8 cm Gallbladder Wall: 0.2 cm CBD: 0.3 cm Spleen: 16.2 cm Right Kidney: 12.0 x 6.1 x 5.1 cm Left Kidney: 13.2 x 5.5 x 5.6 cm ANGLE SHEARER NOTES: Morbidly obese patient, technically difficult, somewhat limited studies. Pancreas: portions visualized wnl Liver: fatty infiltrate, measures large Gallbladder: wnl Evidence for sonographic Mcfarland's sign: no CBD: wnl Spleen: measures large, hyperechoic round structure measuring 1.8 x 2.2 x 1.8cm, splenule measuring 1.4 x 1.0 x 1.4cm Right Kidney: Inferior pole obscured by bowel gas Left Kidney: measures large Upper IVC: wnl Abd Aorta: wnl as seen partially obscured by overlying bowel gas IMPRESSION: 1. Hepatic steatosis. 2. Splenomegaly. 3. No evidence of obstructive uropathy.
== END | disposition home or self-care (01) ==
LOC: RADUSWWP 10:05
PROVIDERS: ATTEND Family Medicine
DX: K76.0 Fatty (change of) liver, not elsewhere classified (principal); R16.1 Splenomegaly, not elsewhere classified
CPT/HCPCS: 76700

== ENCOUNTER → 2022-02-22 | Outpatient (CLI) | payer OTHER ==
--- NOTE | 2022-02-22 09:26 | NM ---
EXAMINATION TYPE: NM hepatobiliary w EF DATE OF EXAM: 02/22/2022 COMPARISON: Ultrasound 02/10/2022 HISTORY: 56-year-old male R10.9 TECHNIQUE: After the intravenous administration of 5.43 mCi Tc 99m Mebrofenin hepatobiliary scintigra phy is performed. Immediate images post injection. FINDINGS: There is satisfactory initial accumulation of tracer by the liver. The gallbladder is visualized wit hin 6 minutes. The small bowel activity is noted within 16 minutes. At one hour 8 ounces of oral en sure plus is given to mimic CCK and gallbladder ejection fraction is calculated at 85 %, slightly benito vated above the expected range. IMPRESSION: 1. No scintigraphic evidence for acute/chronic cholecystitis or biliary dyskinesia. 2. Increased gallbladder ejection fraction of 85% may be seen in the setting of gallbladder hyperkine sis.
== END | disposition home or self-care (01) ==
LOC: RADNMMAIN 06:49
PROVIDERS: ATTEND Family Medicine
DX: R74.01 Elevation of levels of liver transaminase levels (principal)
CPT/HCPCS: 78226; A9537

== ENCOUNTER → 2022-09-28 | Outpatient (CLI) | payer OTHER ==
[2022-09-28 16:31] LABS: ALT 68 U/L (10-49); AST 58 U/L (14-35); Albumin 4.6 d/dL (3.8-4.9); Albumin/Globulin Ratio 1.59 Ratio (1.60-3.17); Alkaline Phosphatase 89 U/L (41-126); BUN/Creat Ratio 10.75 Ratio (12.00-20.00); Basophils # (A) 0.06 X 10*3/uL (0.00-0.10); Basophils % (A) 0.6 %; Blood Urea Nitrogen 8.6 mg/dL (9.0-27.0); Calcium 9.5 mg/dL (8.7-10.3); Carbon Dioxide 24.2 mmol/L (21.6-31.8); Chloride 101 mmol/L (96-109); Eosinophils % (A) 2.1 %; Globulin 2.9 d/dL (1.6-3.3); Glucose 158 mg/dL (70-110); HCT 51.5 % (39.6-50.0); HGB 16.8 d/dL (12.0-15.0); Lymphocytes # (A) 1.64 X 10*3/uL (0.90-5.00); Lymphocytes % (A) 17.2 %; MCH 30.7 pg (27.0-32.0); MCHC 32.6 d/dL (32.0-37.0); Mean Platelet Volume 10.3 FL (9.5-12.2); Monocytes # (A) 0.58 X 10*3/uL (0.20-1.00); Monocytes % (A) 6.1 %; NRBC Per 100 WBC 0 X 10*3/uL (0.00-0.01); Neutrophils # (A) 6.91 X 10*3/uL (1.80-7.70); Neutrophils % (A) 72.3 %; Platelet Count 227 X 10*3/uL (140-440); Potassium 4.6 mmol/L (3.5-5.5); RBC 5.48 X 10*6/uL (4.40-5.60); RDW 13.2 % (11.5-14.5); Sodium 137 mmol/L (135-145); Total Protein 7.5 d/dL (6.2-8.2); WBC 9.55 X 10*3/uL (4.50-10.00)
== END | disposition home or self-care (01) ==
LOC: LABWHC1 10:59
PROVIDERS: ATTEND Internal Medicine Gastroenterology
DX: K76.0 Fatty (change of) liver, not elsewhere classified (principal)
CPT/HCPCS: 36415; 80053; 85025

== ENCOUNTER 2024-06-02 05:47 | Day surgery (SDC) | payer OTHER ==
[2024-05-29 16:18] VITALS: BMI 40.8
[2024-06-02] MEDS ORDERED: fentaNYL (PF) 50 MCG/ML 2 ML AMP IVP PRN (06:21)
[2024-06-02] MEDS ORDERED: LIDOCAINE 1% (10MG/ML) FOR IV START INTRADERMA PRN (06:21)
[2024-06-02] MEDS: IV FLUID CONTINUATION 1,000 ML IV ONE (06:22)
[2024-06-02] MEDS: ACETAMINOPHEN TAB 500 MG TAB PO PRN (06:55)
[2024-06-02] MEDS: ONDANSETRON 4 MG/2 ML VIAL IVP ONE (06:57)
[2024-06-02] MEDS: DEXAMETHASONE SOD PHOSPHATE 4 MG/ML 1 ML VIAL IV ONE (06:57)
[2024-06-02] MEDS: LACTATED RINGERS 1,000 ML IV SCH (06:58)
[2024-06-02 07:02] LABS: Glucose,Whole Blood 198 mg/dL (70-110)
[2024-06-02] MEDS: MIDAZOLAM 2 MG/2 ML VIAL IV PRN (07:22)
[2024-06-02] MEDS: HEPARIN SODIUM,PORCINE 5,000 UNIT/ML 1 ML VIAL SQ PRN (07:25)
[2024-06-02] MEDS ORDERED: ROCURONIUM 10 MG/ML (5 ML VIAL) IV ONE (07:30)
[2024-06-02] MEDS ORDERED: ROPIVACAINE 5 MG/ML 30 ML VIAL ONE (07:30)
[2024-06-02] MEDS ORDERED: MIDAZOLAM 2 MG/2 ML VIAL ONE (07:30)
[2024-06-02] MEDS ORDERED: LIDOCAINE 1% INJ 10MG/ML (20 ML MDV) ONE (07:30)
[2024-06-02] MEDS ORDERED: NEOSTIGMINE 1 MG/ML 10 ML VIAL ONE (07:30)
[2024-06-02] MEDS ORDERED: GLYCOPYRROLATE 0.2 MG/ML 2 ML VIAL ONE (07:30)
[2024-06-02] MEDS ORDERED: PROPOFOL 10 MG/ML 20 ML VIAL IV ONE (07:30)
[2024-06-02] MEDS ORDERED: DEXAMETHASONE SOD PHOSPHATE 4 MG/ML 1 ML VIAL ONE (07:30)
[2024-06-02] MEDS ORDERED: SUCCINYLCHOLINE CHLORIDE 200 MG/10 ML VIAL IV ONE (07:30)
[2024-06-02] MEDS ORDERED: fentaNYL (PF) 50 MCG/ML 2 ML AMP ONE (07:30)
--- NOTE | 2024-06-02 07:33 | P.GSHP ---
History of Present Illness H&P Date: 06/02/24 Chief Complaint: Incarcerated incisional hernia This a 58-year-old male who presents today for open repair of incarcerated incisional hernia. Patient has a 5 cm incarcerated incisional hernia located near the umbilicus. Patient has a transverse scar related previous bowel surgery. The hernia is located the end of the transverse scar in the midline position. 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 fatty liver History of Any Multi-Drug Resistant Organisms: None Reported Past Surgical History: Back Surgery, Bowel Resection, Orthopedic Surgery Additional Past Surgical History / Comment(s): 4 surgeries to lower back, spinal fusion 2008, laminectomy x 3, 4 left elbow surgeries, 18" of colon removed d/t perforation, debi knee arthroscopy Past Anesthesia/Blood Transfusion Reactions: No Reported Reaction Additional Past Anesthesia/Blood Transfusion Reaction / Comment(s): no known hx blood transfusion Smoking Status: Former smoker - Past Family History Mother Family Medical History: No Reported History Father Family Medical History: Diabetes Mellitus, Hypertension Additional Family Medical History / Comment(s): cerebral aneurysm Medications and Allergies Home Medications Medication Instructions Recorded Confirmed Type amLODIPine [Norvasc] 10 mg PO HS 09/01/14 06/02/24 History allopurinoL [Zyloprim] 200 mg PO HS 06/05/19 06/02/24 History ALPRAZolam [Xanax] 0.25 mg PO BID PRN 05/04/21 06/02/24 History Spironolactone [Aldactone] 25 mg PO DAILY 05/04/21 06/02/24 History Doxazosin [Cardura] 4 mg PO QAM 05/29/24 06/02/24 History metFORMIN HCL [Glucophage] 500 mg PO BID 05/29/24 06/02/24 History Allergies Allergy/AdvReac Type Severity Reaction Status Date / Time Beta-Blockers Allergy Swelling Verified 06/02/24 06:33 (Beta-Adrenergic Bloc lisinopril Allergy tongue Verified 06/02/24 06:33 Swelling olmesartan Allergy tongue Verified 06/02/24 06:33 Swelling valsartan Allergy throat Verified 06/02/24 06:33 swelling losartan AdvReac lightheaded, Verified 06/02/24 06:33 tingling in face and lips Surgical - Exam Vital Signs Temp Pulse Resp BP Pulse Ox 97.0 F L 84 18 184/92 97 06/02/24 07:00 06/02/24 07:00 06/02/24 07:00 06/02/24 07:00 06/02/24 07:00 - General well developed, well nourished, no distress - Eyes PERRL - ENT normal pinna - Neck no masses - Respiratory normal expansion - Cardiovascular Rhythm: regular - Abdomen Abdomen: soft, non tender Hernia: incisional (5 cm incarcerated central hernia) Results - Labs Abnormal Lab Results - Last 24 Hours (Table) 06/02/24 Range/Units 06:56 POC Glucose (mg/dL) 198 H (70-110) mg/dL Assessment and Plan Assessment: Encouraged incisional hernia. Will perform open repair.
[2024-06-02] MEDS: ceFAZolin 3 GM in SODIUM CHLORIDE 0.9% 100 ML IVPB PRN (07:34)
[2024-06-02] MEDS: LIDOCAINE 1%-EPI 1:100,000 20 ML VIAL SQ ONE (07:55)
--- NOTE | 2024-06-02 08:45 | P.OP ---
Date of Procedure: 06/02/24 Preoperative Diagnosis: Incarcerated incisional hernia Postoperative Diagnosis: Incarcerated incisional hernia Procedure(s) Performed: Open repair of incarcerated incisional hernia Partial omentectomy Anesthesia: WEI Surgeon: Alfonso Caballero Estimated Blood Loss (ml): 10 Pathology: other (Hernia sac/omentum) Condition: stable Disposition: PACU Description of Procedure: The patient was placed on the upper table in the supine position. He received general endotracheal anesthesia. Patient's abdomen is prepped and draped you sterile fashion. Patient had a right transverse mid abdominal scar. At the medial portion of the scar just above the umbilicus there was evidence of an incarcerated incisional hernia measuring approximately 10 cm diameter. The area of the hernia was incised. Then using blunt sharp/electrocautery the subcu tissues were divided off the hernia sac. The umbilical skin appeared to be ischemic from the hernia. At this point decided to remove the umbilical skin. Elliptical skin incision was made around the umbilicus. And then using blunt sharp/electrocautery of these hernia sac was dissected free. The hernia sac was then transected with the omentum using the LigaSure device. The fascial defect was then closed with [id number] Ethibond suture. And then a #1 STRATAFIX suture was used to buttress the repair. A PATY drain was placed in the subcu space. Brought through separate stab incision. The skin was closed bogdan. Silver dressing was applied. And then the abdominal binder was applied. Patient Toller procedure well. He was sent to recovery room in stable condition.
[2024-06-02 08:48] VITALS: TEMP 97.4
[2024-06-02] MEDS: HYDROmorphone 0.5 MG/0.5 ML SYRINGE IVP PRN (08:59)
[2024-06-02] MEDS: LACTATED RINGERS 1,000 ML IV ONE (10:10)
[2024-06-02] MEDS: KETOROLAC 15 MG/ML 1 ML VIAL IVP STA (10:21)
[2024-06-02 11:43] VITALS: RESP 18
[2024-06-02 12:58] VITALS: BP 116/71; PULSE 99
--- NOTE | 2024-06-04 11:16 | P.ANPRN ---
Procedure Note - Anesthesia - Nerve Block Performed Bilateral Erector Spinae Single Time Out Performed: Yes Date of Procedure: 06/02/24 Procedure Start Time: : Procedure Stop Time: Location of Patient: PreOp Indication: Acute Post-Operative Pain, Requested by Surgeon Sedation Type: Sedate with meaningful contact maintained Preparation: Sterile Prep Position: Prone Needle Types: Pajunk Needle Gauge: 21 Ultrasound used to visualize needle placement: Yes Ultrasound used to observe medication spread: Yes Blood Aspirated: No Pain Paresthesia on Injection Noted: No Resistance on Injection: Normal Image Stored and Saved: Yes Events: Uneventful and Well Tolerated (Ropivacaine 0.5% 15 cc plus normal saline 10 cc plus dexamethasone 4 mg given bilaterally at L1)
== END 2024-06-02 13:31 | disposition home or self-care (01) ==
LOC: OR 05:47
PROVIDERS: ATTEND Surgery
DX: K43.0 Incisional hernia with obstruction, without gangrene (principal); G89.18 Other acute postprocedural pain; E11.9 Type 2 diabetes mellitus without complications; I10 Essential (primary) hypertension; G47.30 Sleep apnea, unspecified; Z87.891 Personal history of nicotine dependence; Z79.84 Long term (current) use of oral hypoglycemic drugs; Z88.8 Allergy status to other drugs, medicaments and biological substances
CPT/HCPCS: 64488; 88305; 49594; J2250; J0330; J1644; J1100; J2710; J0690; J2405; J2003; J3010; J2795; J1885; J2704; J1171; J1596